=== PATIENT | male | born 1960 | race Caucasian/White ===

== ENCOUNTER → 2023-02-02 07:59 | Outpatient (REF) | payer OTHER, SELFPAY | LOC: DHCBC/DCA 07:59 | PROVIDERS: ATTENDING PHYSICIAN Internal Medicine Cardiovascular Disease; FAMILY PHYSICIAN Student in an Organized Health Care Education/Training Program | DX: I25.10 Atherosclerotic heart disease of native coronary artery without angina pectoris (principal); Z95.1 Presence of aortocoronary bypass graft; I73.9 Peripheral vascular disease, unspecified; I71.21 Aneurysm of the ascending aorta, without rupture; I50.31 Acute diastolic (congestive) heart failure; Z98.890 Other specified postprocedural states; Z98.61 Coronary angioplasty status | CPT/HCPCS: 78452; 93017; A9500; J2785 ==

== ENCOUNTER 2023-10-23 21:43 | Observation (INO) | payer OTHER, SELFPAY ==
[2023-10-23 14:31] VITALS: BMI 28.2
[2023-10-23 14:35] VITALS: BP 132/82
[2023-10-23 16:02] LABS: Urine Albumin Negative (Neg - Trace); Urine Bilirubin Negative (Negative); Urine Character Clear (Clear); Urine Color Yellow; Urine Glucose Negative (Negative); Urine Ketone Negative (Negative); Urine Leukocyte Negative (Negative); Urine Nitrite Negative (Negative); Urine Occult Blood Negative (Negative); Urine Specific Gravity 1.015 (<1.030); Urine Urobilinogen Negative (Neg - 1+)
[2023-10-23 16:05] LABS: % Basophils 0.5 % (0-2); % Eosinophils 4.9 % (0-6); % Immature Granulocytes 0.3 % (0-0.5); % Lymphocytes 17.6 % (20.5-51.1); % Neutrophils 67.7 % (42.2-75.2); Absolute Eosinophils 0.2 10^3/uL (0-0.7); Absolute Lymphocytes 0.7 10^3/uL (1.2-3.4); Absolute Monocytes 0.4 10^3/uL (0.1-0.6); Absolute Neutrophils 2.6 10^3/uL (1.4-6.5); Hemoglobin 14.4 g/dL (13.0-18.0); Mean Corp Hgb Conc. 34.3 g/dL (33.0-37.0); Mean Corpuscular Volume 101.9 fL (80.0-94.0); Mean Platelet Volume 10.1 fL (7.4-10.4); Nucleated Red Blood Cells % 0 % (-); Platelet Count 124 10^3/uL (130-400); Red Blood Cell Count 4.12 10^6/uL (4.70-6.10); Red Cell Dist. Width 14.9 % (11.5-14.5); White Blood Cell Count 3.9 10^3/uL (4.8-10.8)
[2023-10-23 16:16] LABS: ALT (SGPT) 72 U/L (0-50); AST (SGOT) 71 U/L (17-59); Albumin 3.8 g/dl (3.5-5.0); Alkaline Phosphatase 78 U/L (38-126); Blood Urea Nitrogen 26 mg/dl (9-20); Calcium 9.5 mg/dl (8.4-10.2); Carbon Dioxide 27 mmol/L (22-30); Chloride 104 mmol/L (98-107); Glucose 119 mg/dl (70-99); INR 1.09; Lipase 88 U/L (23-300); PT 13.9 Sec (11.4-14.6); Potassium 3.6 mmol/L (3.5-5.1); Sodium 133 mmol/L (135-145); Total Bilirubin 0.9 mg/dl (0.2-1.3); Total Protein 6.2 g/dl (6.3-8.2); eGFR > 60.00
[2023-10-23 16:17] LABS: APTT 26.9 Sec (23.4-35.0)
[2023-10-23 16:32] LABS: Troponin I 0.047 ng/ml
--- NOTE | 2023-10-23 17:04 | ED.GENMED ---
History of Present Illness
General
Chief Complaint: Back Pain
Source: patient
Exam Limitations: none
Time Seen by Provider: 10/23/23 14:52
Nursing documentation reviewed up to this point in time: agreed with
Travel History
Have you had any contact with someone who has COVID-19?: No
Do you have any symptoms of coronavirus? Fever > 100 degrees, chills, cough, shortness of breath, sore throat, loss of taste or smell, muscle aches, or headache?: No
History of Present Illness
History of Present Illness:
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
evaluation of right mid back pain. Patient reports onset of symptoms about 10 days ago and have been constant since that time. He denies any trauma or injury. He says that the pain is located in the right mid back just inferior to his scapula on
the right. It seems to be somewhat worse when he is sitting forward he says it feels better when he lays flat. There is no positional component�he has full range of motion of the back and says that it does not trigger increasing discomfort in fact
he did a full back weightlifting workout without increasing pain (in fact he says pain was a bit better after he did his back workout). He denies any associated shortness of breath. He denies any pain in his chest. He denies any abdominal pain.
No nausea, vomiting. He denies any urinary symptoms. He denies similar symptoms in the past. He discussed with his primary doctor who referred to the ER for evaluation.
Past History
Past History
ED Past Medical History: CAD, HTN, Hypercholesterolemia, Psychiatric (anxiety) and Other (upper thoracic aneursym, freq urination-left kidney mass, arthritis)
ED Past Surgical History: Orthopedic (cellulitis of left leg/buttock, right shoulder arthroscopy, left upper thigh debridement) and Other (left nephroctomy 2009. Vascular surgery as described in the history)
Social History
Tobacco: Non-smoker
Alcohol: None
Drug: None
Personal:
Living: with family
Family History
Family History: CAD
Review of Systems
Review of Systems
All Other Systems: ROS reviewed and negative except as documented in HPI and ROS
Constitutional: Denies fever
Respiratory: Denies cough or trouble breathing
Cardiac: Denies chest pain or palpitations
ABD/GI: Denies abdominal pain, nausea or vomiting
: Reports flank pain; Denies dysuria or frequency
Musculoskeletal: Reports back pain; Denies joint pain or neck pain
Neurological: Denies headache, weakness or numbness
Phy Exam
Physical Exam
Physical Exam:
General: Awake, alert, oriented x3; no acute distress
Head: Normocephalic, atraumatic
Eyes: Conjunctiva normal, sclera anicteric
Throat: Airway intact, handling secretions
Neck: Trachea midline, supple without meningismus
Lungs: Clear to auscultation bilaterally, no wheezing, rales, rhonchi
Heart: Regular rate and rhythm, no murmurs, gallops, or rubs
Abd: Soft, non distended, nontender
Back: Patient has no reproducible tenderness in the thoracic or lumbar spine or inferior to the scapula in the region of concern, no rash or skin changes noted
Neuro: Cranial nerves grossly intact, speech fluid
Skin: no rash, no ecchymosis in area of concern
Extremities: Patient has full range of motion in all extremities without discomfort including full rotation of the right shoulder, flexion, extension without triggering discomfort; he has no edema in his extremities; he has scars on the left lower
extremity from prior surgery but distal extremities are warm and well-perfused with good pulses
Scores
Heart Failure Risk
Heart Failure Risk Score: Not Applicable
Heart Score for Chest Pain Patients
STEMI patient?: Not applicable
Withdrawal Assessment of Alcohol
Withdrawal Assessment Completed?: Not applicable
Course
Orders/Labs/Results
Orders:
Orders
10/23/23 15:29
CT Chest Pe Study Urgent
Comment:
Reason For Exam: right mid back pain
10/23/23 15:30
Electrocardiogram (*1) Urgent
Reason for Study: Other
Other Reason for Exam: scapular pain
EKG- Treatment ONCE
10/23/23 15:51
Complete Blood Count/With Diff Urgent
Comprehensive Metabolic Panel Urgent
Lipase Urgent
PTT Urgent
Prothrombin Time Urgent
Troponin I Urgent
Urinalysis Reflex To Culture Urgent
Date Specimen was Collected: 10/23/23
Time Specimen was Collected: 15:49
10/23/23 16:18
US Abdomen Complete/Upper Urgent
Comment:
Reason For Exam: right scapular/flank pain, abnormal LFTs
10/23/23 19:12
CPK [Creatine Phosphokinase] Urgent
Troponin I Urgent
10/23/23 20:09
CARDIOLOGY CONSULT Urgent
Consulting Provider: Benjamin Goins
Was physician already notified: Yes
10/23/23 20:14
Ketorolac [Toradol] 15 mg IV NOW STA
Lorazepam [Ativan] 1 mg IV NOW STA
Abnormal Lab Results
10/23/23 10/23/23
15:51 19:12
WBC 3.9 L 10^3/uL
(4.8-10.8)
RBC 4.12 L 10^6/uL
(4.70-6.10)
MCV 101.9 H fL
(80.0-94.0)
MCH 35.0 H pg
(27.0-31.0)
RDW 14.9 H %
(11.5-14.5)
Plt Count 124 L 10^3/uL
(130-400)
Absolute Lymphs (auto) 0.7 L 10^3/uL
(1.2-3.4)
Lymphocytes % 17.6 L %
(20.5-51.1)
Sodium 133 L mmol/L
(135-145)
BUN 26 H mg/dl
(9-20)
Glucose 119 H mg/dl
(70-99)
AST 71 H U/L
(17-59)
ALT 72 H U/L
(0-50)
Creatine Kinase 563 H U/L
(55-170)
Troponin I 0.047 H* ng/ml 0.049 H* ng/ml
Total Protein 6.2 L g/dl
(6.3-8.2)
10/23/23 15:51
10/23/23 15:51
Vital Signs
Initial and Last Documented VS:
Initial Vital Signs
Temp Pulse Resp BP Pulse Ox
36.8 C 70 16 132/82 98
10/23/23 14:35 10/23/23 14:35 10/23/23 14:35 10/23/23 14:35 10/23/23 14:35
Last Documented Vital Signs
Temp Pulse Resp BP Pulse Ox
36.8 C 65 16 169/89 95
10/23/23 14:35 10/23/23 19:45 10/23/23 19:45 10/23/23 17:41 10/23/23 19:45
MDM/Problems Addressed
Differential Diagnosis Includes:
Pneumonia, pneumothorax, pulmonary embolism, ACS, pericarditis, nephrolithiasis, cholecystitis, cholelithiasis, choledocholithiasis, retroperitoneal hemorrhage, musculoskeletal pain
MDM/Problems Addressed:
63-year-old male presents for atraumatic right mid back/scapular pain for the past week and a half. Vital signs normal. Exam as above. Symptoms not clearly muscular; he has a known history of aneurysm in the thorax. Will plan to place an IV
check labs including a CBC and a CMP. Will check an EKG and a troponin. Check lipase. Will check urinalysis. Will send for a CT angio of the chest. Will monitor closely reassess after the above.
Labs reviewed: CBC shows marginal leukopenia to 3.9 and marginal thrombocytopenia to 124. CMP shows mildly elevated AST and ALT but normal T. bili, lipase is normal; given his symptoms and upper abdominal ultrasound. His urinalysis shows no blood
or signs of infection. His troponin was marginally elevated at 0.047. Awaiting results of CT.
CTA negative for pulmonary embolism, aortic dissection or other acute pathology to account for symptoms. His upper abdominal ultrasound similarly was nondiagnostic. His repeat troponin was essentially flat at 0.049. At this point no clear cause
for his right scapular pain; certainly it sounds very atypical for cardiac pain as there is no clear exertional component and if anything it sounds like it may get better with exertion however no other clear cause for his pain and that is not
clearly muscular and with troponin elevation and cardiac risk factors will plan for admission for cardiac evaluation. Case discussed with cardiology (patient previously seen by Jaime Gale); will consult on patient, plan for admission to the
hospitalist. Discussed with hospitalist for admission.
Chronic conditions affecting care:
Aneurysm
Hypertension, hyperlipidemia
Acute Exacerbation and/or Progression of Chronic Illness:
Acutely hypertensive
Acute Exacerbation and/or Progression of Chronic Illness: HTN
*Radiology
Radiology exam reviewed: radiology read reviewed
*Pulse Oximetry
Patient hypoxic: no
*EKG
Interpreted by ED Provider?: Yes
Comparison EKG: no changes
Heart Rate: 67
Rate: normal
Rhythm: sinus
[place]: normal axis
Interval: first degree heart block
QRS Pattern: right bundle branch block
Ischemia: T-wave inversion (Lateral T wave abnormalities)
*Critical Care Note
Total Time (30-74mins, 75-104mins- exclusive of procedures): Not Applicable
Data Reviewed
Review of Other/Old Records Reveals: Labs, Records and Discharge Summary
Source: patient and records
Patient Management
Discussion with other providers: Hospitalist (Discussed with hospitalist) and Surveyor Chain Helper (Discussed with cardiology)
Escalation/DeEscalation of care consider admission/obs:
Admission indicated
ED Attending Note
-
Portions of this chart may have been created with voice recognition software.� Occasional wrong word or��sound alike� substitutions may have occurred due to the inherent limitations of voice recognition software.
Discharge Plan
Departure
Patient Disposition: Admit
Date of Disposition: 10/23/23
Time of Disposition: 20:14
Admit to doctor: Royal
Presentation/result/management discussed w/ accepting MD/DO: Hospitalist
Discharge Problem:
Pain of right scapula, Elevated troponin
Prescriptions:
No Action
aspirin 81 MG tablet,delayed release (DR/EC)
81 mg PO DAILY
levothyroxine 100 mcg Tablet
100 mcg PO DAILY
ibuprofen [Advil] 200 mg Tablet
800 mg PO DAILYPRN PRN (Reason: mild pain)
vitamin B complex Tablet
1 tab PO DAILY
zinc 50 mg Tablet
50 mg PO DAILY
lisinopril 5 mg Tablet
5 mg PO DAILY
Patient Comments:
10/23/2023, per pt., he sometimes forgets to take this med.
imatinib [Gleevec] 400 mg Tablet
400 mg PO DAILY
rosuvastatin 20 mg Tablet
20 mg PO Q48H@0800
cholecalciferol (vitamin D3) 25 mcg (1,000 unit) Tablet
25 mcg PO DAILY
omega 1-qfm-jvs-fish oil [Fish Oil] 1,200 (144-216) mg Capsule
1 cap PO DAILY
Patient Comments:
10/23/2023, 1280 mg.
magnesium
1 tab PO DAILY
hawthorn melendez
300 mg PO DAILY
Referrals:
NONE,* [Family Provider] -
Interventions
Interventions:
*Risk Screen - Suicide Last Done: 10/23/23 16:56
*General Assessment Last Done: 10/23/23 16:56
*Neglect/Abuse Screening Last Done: 10/23/23 16:56
ED- Fall Risk Assessment Last Done: 10/23/23 16:56
*ED COVID-19 Vaccine History Last Done: 10/23/23 14:39
ED-Musculoskeletal Assessment Last Done: 10/23/23 16:56
[2023-10-23 17:41] VITALS: BP 169/89
[2023-10-23 19:36] LABS: Creatine Phosphokinase 563 U/L (55-170)
[2023-10-23 19:54] LABS: Troponin I 0.049 ng/ml
[2023-10-23] MEDS: TORADOL 15 MG IV (20:22)
[2023-10-23] MEDS: ATIVAN 1 MG IV (20:22)
[2023-10-23 20:27] VITALS: BP 158/76
--- NOTE | 2023-10-23 20:35 | HPS.HSE ---
Addendum entered and electronically signed by Hunter Paige DO 10/23/23 22:09:
Patient seen and examined independently. Agree with findings and plan as set forth by DEMETRIA Franco.
Patient is a 63y M with PMH significant for ASCVD, AAA and hypertension who presents to ED complaining of R scapular pain x 10 days. 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 He denies any recent injury, trauma,
etc. Patient has noted R scapular pain upon waking for the past 10 days. Pain typically improves gradually throughout the AM. He denies any associated symptoms such as dyspnea, diaphoresis, nausea, etc.
Patient has continued to work-out and states that he has no pain while working out.
He has prior h/o coronary disease s/p CABG.
Ass:
Right Scapular Pain
Abnormal Troponin - Unknown Type
ASCVD
Benign Hypertension
AAA
Hypothyroidism
CML
Plan:
Observe overnight for further evaluation and treatment.
Pain-free at present.
Follow for any recurrence of pain.
EKG with lateral T wave inversions - but similar to prior tracings from several years ago.
Cardiology evaluation for additional recommendations / work-up.
Continue current CV med regimen for now.
Begin IV heparin, etc should pain have increasing troponin, further pain, etc.
Original Note:
Family Physician
-
Family Physician: * NONE
Chief Complaint
-
right mid scapula pain
History of Present Illness
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
evaluation of right middle scapula pain for past ten days. patient wakes up with it in the morning and subsides by the end of day.He denies any trauma or injury.pain is better, when laying flat. stated mild sob with exertion. patient started taking
hawthorn melendez for sob, which had helped him in the past.� He denies any pain in his chest.� He denies any abdominal pain.� No nausea, vomiting.� He denies any dysuria or hematuria.
noted elevated trop in ER. admitting for further management.
Medical History
Past Medical History
Past Medical History: Reports Other
Additional Past Medical History:
Thoracic aortic aneurysm without rupture
Hyperlipidemia
Peripheral vascular disease
Thoracic ascending aortic aneurysm
Coronary artery disease
Tachycardia hypertension
Popliteal artery aneurysm
Past Surgical History: Reports Other
Additional Past Surgical History:
Right shoulder replacement
Partial nephrectomy of kidney
Mid SFA
Robotic cardiac bypass
Neck fusion
Social History
Tobacco: Non-smoker
Alcohol: None
Drug: None
Personal:
Living: With Family
Employment: Employed
Family History
Family History: Not pertinent
Allergies / Home Medications
Allergies reflects when Allergies were last updated in [facility].
Home Medications with original date entered in [facility]
Allergy/Medication List:
Allergies
Allergy/AdvReac Type Severity Reaction Status Date / Time
zolpidem [From Ambien] Allergy Unknown Verified 10/23/23 14:42
Home Medications
aspirin 81 mg tablet,delayed release 81 mg PO DAILY Blood clot prevention/tx 04/27/20
cholecalciferol (vitamin D3) 25 mcg (1,000 unit) tablet 25 mcg PO DAILY 10/23/23
hawthorn melendez 300 mg PO DAILY 10/23/23
ibuprofen 200 mg tablet (Advil) 800 mg PO DAILYPRN PRN mild pain 10/23/23
imatinib 400 mg tablet (Gleevec) 400 mg PO DAILY 10/23/23
levothyroxine 100 mcg tablet 100 mcg PO DAILY 10/23/23
lisinopril 5 mg tablet 5 mg PO DAILY 10/23/23
magnesium 1 tab PO DAILY 10/23/23
omega 6-sii-igw-fish oil 1,200 mg (144 mg-216 mg) capsule (Fish Oil) 1 cap PO DAILY 10/23/23
rosuvastatin 20 mg tablet 20 mg PO Q48H@0800 10/23/23
vitamin B complex 1 tab PO DAILY 10/23/23
zinc 50 mg tablet 50 mg PO DAILY 10/23/23
Review of Systems
-
Constitutional: Reports No Symptoms
EENT: Reports No Symptoms
Respiratory: Reports Trouble Breathing
Cardiac: Reports No Symptoms
Abdomen/GI: Reports No Symptoms
: Reports No Symptoms
Musculoskeletal: Reports Other (Right mid scapular pain)
Skin: Reports No Symptoms
Neurological: Reports No Symptoms
Endocrine: Reports No Symptoms
Hematologic/Lymphatic: Reports No Symptoms
Psych: Reports No Symptoms
Physical Exam
Vital Signs
Vital Signs
Temp Pulse Resp BP Pulse Ox
98.2 F 65 16 169/89 95
10/23/23 14:35 10/23/23 19:45 10/23/23 19:45 10/23/23 17:41 10/23/23 19:45
Physical Exam
General: Well Developed, Well Nourished and No Apparent Distress
HEENT: NormoCephalic, Moist mucous membranes and Atraumatic
Respiratory: Clear
Cardiac: S1/S2 and Regular Rhythm; No Murmur or Rub
GI: Soft, Non Tender, Non Distended and Normal Bowel Sounds; No Organomegaly
Rectal: Deferred by Provider
Musculoskeletal: No Clubbing, No Cyanosis and No Edema
Skin: No Rash
Neuro: AO x 3 and Nonfocal/grossly intact
Psych: Calm
Laboratory Results
-
10/23/23 15:51
10/23/23 15:51
Laboratory Results
PT 13.9 Sec (11.4-14.6) 10/23/23 15:51
INR 1.09 10/23/23 15:51
APTT 26.9 Sec (23.4-35.0) 10/23/23 15:51
Total Bilirubin 0.9 mg/dl (0.2-1.3) 10/23/23 15:51
AST 71 U/L (17-59) H 10/23/23 15:51
ALT 72 U/L (0-50) H 10/23/23 15:51
Alkaline Phosphatase 78 U/L (38-126) 10/23/23 15:51
Troponin I 0.049 ng/ml H* 10/23/23 19:12
Lipase 88 U/L (23-300) 10/23/23 15:51
Data Reviewed
-
Diagnostic Radiology: Report Reviewed by me
Lab Data: Labs Reviewed by me
Impression/Plan
-
#right scapular pain r/O NSTEMI
-trop 0.049,CK 563
-EKG with Sinus rhythm with 1st degree AV block, incomplete right bundle branch block
-CTA negative
-Trend Trop
-cardiology consulted
#Chronic LFT elevation
-ast 71,alt 72
-ctm
-US abdomen with Normal appearance of the gallbladder with no evidence for biliary ductal dilation.Liver size is in the upper range of normal.Spleen is slightly enlarged.Pancreatic tail is unable to be adequately visualized.Bilateral renal cysts.
# History of PAD
-s/p left SFA to distal PT bypass with transposed saphenous vein for popliteal artery aneurysm/thrombosis 04/2016
- s/p urgent catheter directed thrombolysis, angioplasty and stenting of LLE bypass 01/16/20
-Aspirin continued
#hxt of CML
-Gleevec continued
#hypothyroidism
-levothyroxine continued
#essential htn
-lisinopril continued
#HLD
-statin continued
#DVT prophylaxis
-scd
#CODE status
-full code
[2023-10-23 21:00] VITALS: BP 132/77
[2023-10-23 23:11] VITALS: BP 157/77
[2023-10-23 23:14] VITALS: BMI 27.8
[2023-10-24 00:16] VITALS: BP 118/74
[2023-10-24] MEDS: TUMS 2 TABLET PO (00:18)
[2023-10-24] MEDS: NORCO 5/325 1 TABLET PO (00:18)
--- NOTE | 2023-10-24 00:49 | PTCARENOTE ---
received patient from the ED at approx 2300. AAOx3. patient c/o R upper back pain, stabbing. patient states pain only with exertion; walking, sitting up. states pain subsides when laying in bed. denies any chest pain/sob. HR SR with a first degree
AVB and BBB 60s. bp stable. 96% on RA. oriented patient to room. NPO at midnight. answered all questions.
patient requesting medication for r upper back pain and indigestion. patient states indigestion from his dinner; not abnormal per patient. patient denies any cp. updated Rad[facility] [employer]. Renwick 1 tab and tums ordered and given, see sep.
patient had recent b/l bicep surgery-blood pressures taken on forearms/wrist.
[2023-10-24 00:55] LABS: Troponin I 0.062 ng/ml
[2023-10-24 05:53] VITALS: BP 145/85
[2023-10-24 06:00] VITALS: BMI 27.7
[2023-10-24] MEDS: SYNTHROID 100 MCG PO (06:09)
--- NOTE | 2023-10-24 06:13 | PTCARENOTE ---
patient states sleeping overnight. denies any pain. ambulated to the BR with no issue. vitals stable.
[2023-10-24 06:35] LABS: Hematocrit 43.5 % (39.0-52.0); Hemoglobin 15.1 g/dL (13.0-18.0); Mean Corp Hgb Conc. 34.7 g/dL (33.0-37.0); Mean Corpuscular Hgb 35.1 pg (27.0-31.0); Mean Corpuscular Volume 101.2 fL (80.0-94.0); Mean Platelet Volume 10.5 fL (7.4-10.4); Platelet Count 111 10^3/uL (130-400); Red Cell Dist. Width 14.9 % (11.5-14.5); White Blood Cell Count 3.4 10^3/uL (4.8-10.8)
[2023-10-24 07:10] VITALS: BP 144/77
[2023-10-24 07:11] LABS: ALT (SGPT) 68 U/L (0-50); AST (SGOT) 62 U/L (17-59); Albumin 3.5 g/dl (3.5-5.0); Alkaline Phosphatase 85 U/L (38-126); Blood Urea Nitrogen 27 mg/dl (9-20); Calcium 9.5 mg/dl (8.4-10.2); Carbon Dioxide 24 mmol/L (22-30); Chloride 109 mmol/L (98-107); Estimated Creatinine Clearance 95 ml/min; Glucose 119 mg/dl (70-99); HDL Cholesterol 25 mg/dl; LDL Cholesterol, Calculated 50 mg/dl; Potassium 3.7 mmol/L (3.5-5.1); Sodium 136 mmol/L (135-145); Total Bilirubin 0.6 mg/dl (0.2-1.3); Total CK 373 U/L (55-170); Total Cholesterol 97 mg/dl (50-199); Total Protein 5.8 g/dl (6.3-8.2); Triglyceride 110 mg/dl (10-149); Troponin I 0.062 ng/ml; Very Low Density Lipoprotein 22 mg/dl (0-30); eGFR > 60.00
[2023-10-24 07:48] LABS: CKMB 6.3 ng/ml (0.0-2.4)
--- NOTE | 2023-10-24 08:20 | CON.CAR ---
Addendum entered and electronically signed by Jaime Gale MD 10/24/23 10:52:
63-year-old man with complex medical history including CAD, COURTNEY to LAD robotic CABG with RCA PCI, hypertrophic cardiomyopathy, aneurysm of ascending aorta, HFpEF, limb threatening left lower extremity PAD, CML on Gleevec admitted now with right
scapular pain and detectable troponin, peak 0.062, EKG sinus bradycardia RSR prime diffuse anterolateral T wave inversions which are longstanding. Long history of noncompliance
PMH: CAD, aneurysm of ascending aorta RCA PCI with hybrid CABG, hypertrophic cardiomyopathy, hypertension, hyperlipidemia refusing statin therapy, CML on Gleevec, history of anabolic steroid use
PSH: Robotic COURTNEY to LAD, cervical laminectomy, thrombosed left fem bypass
Family history father with abdominal aortic aneurysm, mother with CABG
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
Allergies: None
Review of systems negative except as above
144/77, pulse 62, respirate 16
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
ECG sinus rhythm with rare PACs versus sinus arrhythmia, incomplete right bundle branch block anterolateral T wave inversions which are chronic
CT chest: LVH no dissection, pneumo, pulmonary embolus
Peak troponin is 0.062
Plan:
He presents with pain that sounds very musculoskeletal.
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 His pain is worse with standing only and better lying down. When he walks, it becomes more intense but I think this relates to his standing rather than
exertion as he can exercise at the gym without difficulty and feels better throughout the day. It is worse when he first gets up in the morning before moving. He also saw a cough chiropractor had local therapy applied medial to his right scapula
and thinks it may have helped a bit. I had him stand without moving and his pain worsened. I had him lie down and his pain got better.
His detectable troponin is of concern but it is flat and I think this reflects his LVH more than anything. I would be tempted to repeat a troponin in several days and suspect that will still be low-grade elevated.
Despite my my assessment that this is musculoskeletal, given the complexity of his situation I lean towards catheterization which I suspect would show a patent COURTNEY and patent RCA stents without obstructive CAD. His LVEDP would likely be elevated
related to his LVH. However he is understandably reluctant and we agreed that repeating a pharmacologic sestamibi study is a good option.
We will check a proBNP prior to discharge.
He will continue statin therapy.
He has previously refused beta-blockade and has a resting bradycardia.
If he requires nonsteroidals I recommended naproxen over ibuprofen. Have him take famotidine while on nonsteroidals.
Recommended cardiac medications:
Aspirin 81 mg a day
Rosuvastatin 20 mg a day
Naproxen 250 mg twice daily as needed
Famotidine 20 or 40 mg daily with naproxen
Lisinopril 5 mg daily
Would repeat troponin in 3 days with attention to me, many patients have minimal chronic elevation of troponin which does have prognostic significance in the absence of ACS
Would recommend he see orthopedics, chiropractic, etc. for his back
Original Note:
Consultation
Consultation Request
Date/Time Consultation Performed: 10/24/23
Requesting Provider: Dr. Paige
Performing Provider: Heather Wood PA-C for Dr. SHON Gale
Reason for Consultation: back pain
Medical History
-
Chief Complaint: back pain
History of Present Illness:
Patient is a 63-year-old male with PMH of CAD status post hybrid approach RCA PCI and robotic COURTNEY to LAD at 2020 at [facility], LVOT obstruction with associated murmur, peripheral vascular disease with history of left femoral-popliteal
bypass with subsequent occlusion of bypass graft, CML, thoracic aortic aneurysm, left partial nephrectomy for renal cell carcinoma who presents to [facility] for evaluation of back pain. He reports this has bothered him over the last week.
He describes it as an upper right sided stabbing pain under his scapula. He states it feels better with lying down and with movement. He states it is not reproducible with palpation. It is worst when he first wakes up in the morning. He denies
associated shortness of breath, palpitations, lightheadedness or dizziness, nausea or vomiting, radiation of pain to arms, chest, jaw/neck. He reports he did not present with chest pain in the setting of his prior PCI/coronary bypass. He reports
the discomfort has not limited his ability to work out. He reports no present pain, however states with getting up to go to the bathroom he will develop recurrence of the discomfort. Trops stable at 0.06. Cardiology consulted for evaluation
PMH:
CAD s/p RCA PCI and robotic COURTNEY to LAD 2019 [facility]
LVOT obstruction with associated murmur
CML, on gleevec
Peripheral vascular disease with history of left femoropopliteal bypass 2016 with occluded bypass graft 03/2020
HTN with intermittent orthostasis
dyslipidemia
Hypothyroidism
mild dilation of infrarenal aorta 2.[address] 2010
known thoracic aortic aneurysm 4.6 cm aortic root on CT 2011
h/o L partial nephrectomy for renal cell CA
Cervical disc disease s/p laminectomy
History of anabolic steroid use
Past Medical History
Past Medical History: Other (in HPI)
Social History
Tobacco: Non-Smoker
Personal:
Living: With Family
Employment: Employed
Family History
Family History: CAD
Allergies / Home Medications
Allergy/AdvReac Type Severity Reaction Status Date / Time
zolpidem [From Ambien] Allergy Gave pt Verified 10/23/23 23:10
nightmares
Medication Instructions Recorded Confirmed Type
aspirin 81 mg tablet,delayed 81 mg PO DAILY Blood clot 04/27/20 10/23/23 History
release prevention/tx
cholecalciferol (vitamin D3) 25 25 mcg PO DAILY 10/23/23 10/23/23 History
mcg (1,000 unit) tablet
hawthorn melendez 300 mg PO DAILY 10/23/23 10/23/23 History
ibuprofen 200 mg tablet (Advil) 800 mg PO DAILYPRN PRN mild pain 10/23/23 10/23/23 History
imatinib 400 mg tablet (Gleevec) 400 mg PO DAILY 10/23/23 10/23/23 History
levothyroxine 100 mcg tablet 100 mcg PO DAILY 10/23/23 10/23/23 History
lisinopril 5 mg tablet 5 mg PO DAILY 10/23/23 10/23/23 History
magnesium 1 tab PO DAILY 10/23/23 10/23/23 History
omega 1-rbc-thn-fish oil 1,200 mg 1 cap PO DAILY 10/23/23 10/23/23 History
(144 mg-216 mg) capsule (Fish Oil)
rosuvastatin 20 mg tablet 20 mg PO Q48H@0800 10/23/23 10/23/23 History
vitamin B complex 1 tab PO DAILY 10/23/23 10/23/23 History
zinc 50 mg tablet 50 mg PO DAILY 10/23/23 10/23/23 History
Review of Systems
-
History Source: Patient
All other systems: Negative unless noted
Physical Exam
Vital Signs
Temp Pulse Resp BP Pulse Ox
97.5 F 59 16 145/85 96
10/24/23 07:08 10/24/23 07:08 10/24/23 07:08 10/24/23 05:53 10/24/23 07:08
Lab Results
10/24/23 05:53
10/24/23 05:53
Troponin I 0.062 ng/ml H* 10/24/23 05:53
Physical Exam
General: No Apparent Distress and Comfortable
HEENT: Normocephalic, Anicteric and Moist Mucous Membranes
Respiratory: Clear and Non Labored Respirations
Cardiac: S1/S2, Regular Rhythm and Murmur
GI: Soft, Non Tender, Non Distended and Normal Bowel Sounds
Musculoskeletal: No Clubbing, No Cyanosis and No Edema
Skin: Warm and Dry
Neuro: AO x 3
Impression / Plan
-
Primary Reconnaissance Crewmember: Dr. SHON Gale
Assessment:
Presentation with R sided back pain
Elevated troponin, 0.06
CAD s/p RCA PCI and robotic COURTNEY to LAD 2019 [facility]
LVOT obstruction with associated murmur
CML, on gleevec
Peripheral vascular disease with history of left femoropopliteal bypass 2017 with occluded bypass graft 03/2020
HTN with intermittent orthostasis
dyslipidemia
Hypothyroidism
mild dilation of infrarenal aorta 2.[address] 2010
known thoracic aortic aneurysm 4.6 cm aortic root on CT 2011
h/o L partial nephrectomy for renal cell CA
Cervical disc disease s/p laminectomy
History of anabolic steroid use
NSVT
B/L renal cysts by abd US
ECHO 05/2021: Moderate to severe asymmetric septal hypertrophy with dynamic LV function, EF 70%, LV mid cavity gradient 65 mmHg, stage II diastolic dysfunction, MAC, trace MR, dilated left atrium, aortic sclerosis, trace AR, dilated aortic root and
ascending aorta, 4.6 cm.
Lexiscan nuclear stress test 02/02/2023: Normal sestamibi perfusion imaging, EF 49%, no obvious ischemia
Plan:
-Patient presents for evaluation of right-sided back pain over the last week
-chest CT without PE or dissection
-Troponin elevated but flat at 0.06
-EKG abnormal but stable compared to prior, with anterolateral T wave inversions and LVH
-CK/CK-MB noted to be elevated
-Discomfort appears atypical for cardiac etiology, however patient also with complex cardiac history as above
-Continue aspirin, lisinopril
-He had 12 beat run of NSVT on review of telemetry overnight. He has previously refused beta-wendy. Sinus bradycardia at baseline. Replete K. Check magnesium
-LDL 50. Continue Crestor every 48 hours
-Check echo, last from 05/2021 with results as above. he is noted to have LVOT murmur on exam
-Recent stress test from 01/2023 as above
-If significant concern pain related to ischemia, consider for cardiac cath. patient presently NPO.
-LFTs mildly elevated. abd US reviewed - normal appearance of gallbladder, liver size in upper range of normal
Data Reviewed
-
EKG: Tracing Personally Visualized and interpreted
CT Scan: Report Reviewed by me
Ultrasound: Report Reviewed by me
Medical Tests (Nuc Med, Echo etc): Report Reviewed by me
Labs: Labs Reviewed by me
Old Records: Reviewed
[2023-10-24] MEDS: ASPIR LOW (ENTERIC COATED) 81 MG PO (08:30)
[2023-10-24] MEDS: ZESTRIL 5 MG PO (08:30)
[2023-10-24 08:43] LABS: Glycohemoglobin (HgbA1c) 5.1 % (4.0-5.6)
[2023-10-24 09:34] LABS: Magnesium 1.8 mg/dl (1.6-2.3)
[2023-10-24] MEDS: KCL 20 MEQ PO (10:49)
--- NOTE | 2023-10-24 11:08 | CM ---
spoke with pt in room, he is prev indep, lives with his /son in a 2 story home with 4 steps to enter. he denies any dc planning needs or dme's. plan is for dc to home when medically stable.
[2023-10-24 11:53] VITALS: BP 130/80
[2023-10-24 12:20] LABS: NT-proBNP 213 pg/ml
--- NOTE | 2023-10-24 14:21 | W.PN.HOSP.TC ---
Today's Communication/Plan
-
Discharge today
Assessment / Plan
Assessment / Plan
Physical Exam
General: Well Developed, Well Nourished and No Apparent Distress
HEENT: Normocephalic, Moist mucous membranes and Atraumatic
Respiratory: Clear
Cardiac: S1/S2 and Regular Rhythm; No Murmur or Rub
GI: Soft, Non Tender, Non Distended and Normal Bowel Sounds; No Organomegaly
Rectal: Deferred by Provider
Musculoskeletal: No Clubbing, No Cyanosis and No Edema
Skin: No Rash
Neuro: AO x 3 and Nonfocal/grossly intact
Psych: Calm

#Right scapular pain - worse with standing and better with lying down
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
-CTA negative
-cardiology consulted, recommendations appreciated
-Per cardiology, after discussion with patient, repeat a pharmacologic sestamibi study as an outpatient
-ProBNP unremarkable
-As per cardiology, okay to take Naproxen 250 mg twice daily as needed (rather than ibuprofen) but take Famotidine 20 or 40 mg daily with naproxen while on naproxen.
-Orthopedics referral on discharge
#Abnormal Troponin
-Likely from left ventricular hypertrophy as per cardiology
-Recheck troponin in 3 days to make sure still okay (and please send results to Dr. Jaime Gale, [facility] storage management architect)
#Resting Bradycardia
-Patient has previously refused beta-wendy as well
#CAD s/p RCA PCI and robotic COURTNEY to [address]
#Chronic LFT elevation
-ast 71,alt 72
-ctm
-US abdomen with Normal appearance of the gallbladder with no evidence for biliary ductal dilation.Liver size is in the upper range of normal.Spleen is slightly enlarged.Pancreatic tail is unable to be adequately visualized.Bilateral renal cysts.
# History of PAD with history of left femoropopliteal bypass 2017 with occluded bypass graft 03/2020
-Aspirin continued
#Known thoracic aortic aneurysm 4.6 cm aortic root on CT 2011
#Mild dilation of infrarenal aorta 2.[address] 2010
#Non-sustained ventricular tachycardia
-Recheck BMP and Magnesium as an outpatient in 3 days
#History of of CML
-Gleevec continued
#History of left partial nephrectomy for renal cell cancer
#hypothyroidism
-levothyroxine continued
#essential hypertension
-Continue Lisinopril 5 mg daily
#B/L renal cysts by abdominal ultrasound
#Spleen slightly enlarged by abdominal ultrasound
#HLD
-statin continued
#DVT prophylaxis
-scd
#CODE status
-full code
More than 30 minutes spent in discharge including
Final examination of the patient
Summarizing hospital stay
Instructions for continuing care to all relevant caregivers
Preparation of discharge records, prescriptions, and referral forms
Total time spent (in minutes): 41
Anticipated Discharge: Today
Subjective/Interval History
-
Date of Service: October 24, 2023
Patient was seen and examined. He reported back pain but otherwise denied any new symptoms or complaints and would like to be discharged today.
Objective Data
-
Labs:
Laboratory Results
10/24/23
05:53
WBC 3.4 L
Hgb 15.1
Hct 43.5
Plt Count 111 L
Sodium 136
Potassium 3.7
Chloride 109 H
Carbon Dioxide 24
BUN 27 H
Creatinine 0.9
Glucose 119 H
Calcium 9.5
Total Bilirubin 0.6
AST 62 H
ALT 68 H
Alkaline Phosphatase 85
Vital Signs:
Vital Signs
Temp Pulse Resp BP Pulse Ox
98 F 66 16 130/80 99
10/24/23 11:53 10/24/23 12:30 10/24/23 11:53 10/24/23 11:53 10/24/23 11:53
--- NOTE | 2023-10-24 14:53 | W.DS.TRANS ---
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
-
Discharge Instructions:
Discharge Diagnosis/Procedures #Right scapular pain - worse with standing and
better with lying down
#Abnormal Troponin
#Resting Bradycardia
#CAD s/p RCA PCI and robotic COURTNEY to LAD 2019
[facility]
#Chronic hepatic transaminases elevation
#History of Peripheral Artery Disease with
history of left femoro-popliteal bypass 2016
with occluded bypass graft 03/2020
#Known thoracic aortic aneurysm 4.6 cm aortic
root on CT 2011
#Mild dilation of infrarenal aorta 2.[address]
2010
#Non-sustained ventricular tachycardia
#History of of CML
#History of left partial nephrectomy for renal
cell cancer
#Hypothyroidism
#Essential hypertension
#Bilateral renal cysts by abdominal ultrasound
#Spleen slightly enlarged by abdominal
ultrasound
#Hyperlipidemia
Diet Low Cholesterol,Low Fat,Low Sodium
Activity As tolerated
Blood Work Recheck your CBC, BMP and Magnesium as well as
troponin in the next 3 days (by Monday10/27/23)
with your primary care provider (if you don't
have a primary care provider a referral was made
- please see them latest by 10/27/23)
Instructions:
Stand-Alone Forms:
Changes to Home Medications: Yes
Discharge Medications:
DC Medications w/original date entered in [employer]
aspirin 81 mg tablet,delayed release 81 mg PO DAILY Blood clot prevention/tx 04/27/20
cholecalciferol (vitamin D3) 25 mcg (1,000 unit) tablet 25 mcg PO DAILY Supplement 10/23/23
hawthorn melendez 300 mg PO DAILY Supplement 10/23/23
imatinib 400 mg tablet (Gleevec) 400 mg PO DAILY Cancer 10/23/23
levothyroxine 100 mcg tablet 100 mcg PO DAILY Thyroid 10/23/23
lisinopril 5 mg tablet 5 mg PO DAILY Blood Pressure 10/23/23
magnesium 1 tab PO DAILY Supplement 10/23/23
omega 5-yek-lgt-fish oil 1,200 mg (144 mg-216 mg) capsule (Fish Oil) 1 cap PO DAILY Supplement 10/23/23
vitamin B complex 1 tab PO DAILY Supplement 10/23/23
zinc 50 mg tablet 50 mg PO DAILY Supplement 10/23/23
famotidine 20 mg tablet 20 mg PO DAILY #20 tabs 10/24/23
naproxen 250 mg tablet 250 mg PO BID PRN Pain #20 tabs 10/24/23
rosuvastatin 20 mg tablet 20 mg PO DAILY High Cholesterol #0 tabs 10/24/23
Home Medication Changes
Naproxen and Famotidine are new medications.
Rosuvastatin has been changed to 20 mg daily (instead of Q48H) as per phys asst.
Ibuprofen stopped.
Pending Results: No
Total time spent discharging patient (in min): 41
--- NOTE | 2023-10-27 12:41 | W.DCSUMMARY ---
Discharge Summary
Discharge Data
Date of Admission: 10/23/23
Date of Discharge: 10/24/23
Total time spent discharging patient (in min): 41
-
Pending Results: No
Hospital Course
63 y/o male with a past medical history of coronary artery bypass grafting with additional past medical history, who presented with right scapular pain. Cardiology was consulted given abnormal troponins and electrocardiogram with T-wave inversions.
Patient was started on intravenous Heparin. 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 Due to patient's history and situation, cardiology favored cardiac cath but
patient was reluctant to have the cath, so a stress test would be scheduled outpatient. Cardiology was okay with patient Naproxen for his pain rather than Ibuprofen. A repeat troponin would have to be checked by 10/27/23. Echocardiogram was done --
please see separate echocardiogram report. Patient was stable for discharge.
Discharge Plan
-
Patient Disposition: Home (Routine Discharge)
Discharge Diagnosis/Procedures: #Right scapular pain - worse with standing and better with lying down
#Abnormal Troponin
#Resting Bradycardia
#CAD s/p RCA PCI and robotic COURTNEY to LAD 2019 [facility]
#Chronic hepatic transaminases elevation
#History of Peripheral Artery Disease with history of left femoro-popliteal bypass 2017 with occluded bypass graft 03/2020
#Known thoracic aortic aneurysm 4.6 cm aortic root on CT 2011
#Mild dilation of infrarenal aorta 2.[address] 2010
#Non-sustained ventricular tachycardia
#History of of CML
#History of left partial nephrectomy for renal cell cancer
#Hypothyroidism
#Essential hypertension
#Bilateral renal cysts by abdominal ultrasound
#Spleen slightly enlarged by abdominal ultrasound
#Hyperlipidemia
Condition: Fair
Diet: Low Fat, Low Cholesterol and Low Sodium
Activity: As tolerated
Blood Work: Recheck your CBC, BMP and Magnesium as well as troponin in the next 3 days (by Monday10/27/23) with your primary care provider (if you don't have a primary care provider a referral was made - please see them latest by 10/27/23)
Activity Restrictions/Additional Instructions:
you are scheduled for a lexiscan nuclear stress test on 10/26/23 at 7:40AM at [facility]. Please see attached order and information packet.
Recheck your CBC, BMP and Magnesium as well as troponin labwork in the next 3 days (by Monday10/27/23) with your primary care provider -- THE TROPONIN LAB-WORK RESULTS MUST BE SENT TO DR. JAIME GALE ([facility]) BY YOUR PRIMARY
CARE PROVIDER (if you don't have a primary care provider a referral was made - please see them latest by 10/27/23)
Referrals:
Vasquez Landaverde DO [Community] - in one day (Patient needs to establish with a primary care doctor and have his CBC, BMP, Magnesium and Troponin checked latest by 10/27/23 (the troponin result will need to be sent to Dr. Jaime Gale with
[facility]))
NONE,* [Family Provider] - in one day
Jaime Gale MD [Active] - in four to six weeks
Additional Discharge Medication Instructions: Naproxen and Famotidine are new medications.
Rosuvastatin has been changed to 20 mg daily (instead of Q48H) as per under cutting machine operator.
Ibuprofen stopped.
Prescriptions:
New
naproxen 250 mg tablet
250 mg PO BID PRN (Reason: Pain) Qty: 20 0RF
famotidine 20 mg tablet
20 mg PO DAILY Qty: 20 0RF
Continued
aspirin 81 MG tablet,delayed release (DR/EC)
81 mg PO DAILY
levothyroxine 100 mcg Tablet
100 mcg PO DAILY
vitamin B complex Tablet
1 tab PO DAILY
zinc 50 mg Tablet
50 mg PO DAILY
lisinopril 5 mg Tablet
5 mg PO DAILY
Patient Comments:
10/23/2023, per pt., he sometimes forgets to take this med.
imatinib [Gleevec] 400 mg Tablet
400 mg PO DAILY
cholecalciferol (vitamin D3) 25 mcg (1,000 unit) Tablet
25 mcg PO DAILY
omega 0-ewz-zmq-fish oil [Fish Oil] 1,200 (144-216) mg Capsule
1 cap PO DAILY
Patient Comments:
10/23/2023, 1280 mg.
magnesium
1 tab PO DAILY
hawthorn melendez
300 mg PO DAILY
Changed
rosuvastatin 20 mg Tablet
20 mg PO DAILY Qty: 0 0RF
Discontinued
ibuprofen [Advil] 200 mg Tablet
800 mg PO DAILYPRN PRN (Reason: mild pain)
Discharge Orders:
Discharge Patient (As Directed); Ordered 10/24/23
Ordered By: Shlomo Irwin
Care Plan Goals
Care Plan Goals:
Problem: Readiness for enhanced knowledge related to diagnosis and treatment plan
Goal: Understand your diagnosis and treatment plan needs, including medications if applicable.
Instructions: Know your diagnosis, underlying causes and treatment plan options, including medications if applicable. Consult with your health care team to learn about your diagnosis and treatment plan, including medications if applicable.
Discharge Date and Time
Discharge Date/Time: 10/24/23 15:32
Print Language: LUX[place]
== END 2023-10-24 15:32 | disposition home or self-care (01) ==
LOC: IVU 21:43
PROVIDERS: Registered Nurse; ADMITTING PHYSICIAN Hospitalist; ATTENDING PHYSICIAN Hospitalist; EMERGENCY PHYSICIAN Emergency Medicine; OTHER PHYSICIAN Internal Medicine Cardiovascular Disease
DX: M25.511 Pain in right shoulder (principal); M54.6 Pain in thoracic spine; R79.89 Other specified abnormal findings of blood chemistry; R00.1 Bradycardia, unspecified; I11.0 Hypertensive heart disease with heart failure; E03.9 Hypothyroidism, unspecified; E78.00 Pure hypercholesterolemia, unspecified; I73.9 Peripheral vascular disease, unspecified; I47.20 Ventricular tachycardia, unspecified; N28.1 Cyst of kidney, acquired; I71.21 Aneurysm of the ascending aorta, without rupture; I25.10 Atherosclerotic heart disease of native coronary artery without angina pectoris; Z85.528 Personal history of other malignant neoplasm of kidney; Z95.5 Presence of coronary angioplasty implant and graft; Z96.611 Presence of right artificial shoulder joint; Z82.49 Family history of ischemic heart disease and other diseases of the circulatory system; Z79.82 Long term (current) use of aspirin; Z79.890 Hormone replacement therapy; Z86.79 Personal history of other diseases of the circulatory system; Z95.1 Presence of aortocoronary bypass graft; Z88.8 Allergy status to other drugs, medicaments and biological substances
CPT/HCPCS: 71275; 76700; 80053; 80061; 81003; 82550; 82553; 83036; 83690; 83735; 83880; 84484; 85025; 85027; 85610; 85730; 93005; 93306; 96374; 96375; 99285; G0378; Q9967

== ENCOUNTER → 2023-10-25 13:24 | Outpatient (REF) | payer OTHER, SELFPAY ==
[2023-10-25 14:08] LABS: % Basophils 0.5 % (0-2); % Eosinophils 3.7 % (0-6); % Immature Granulocytes 0.2 % (0-0.5); % Lymphocytes 20.5 % (20.5-51.1); % Monocytes 10.2 % (1.7-9.3); % Neutrophils 64.9 % (42.2-75.2); Absolute Eosinophils 0.2 10^3/uL (0-0.7); Absolute Lymphocytes 0.8 10^3/uL (1.2-3.4); Absolute Monocytes 0.4 10^3/uL (0.1-0.6); Absolute Neutrophils 2.7 10^3/uL (1.4-6.5); Hematocrit 45.8 % (39.0-52.0); Hemoglobin 16.1 g/dL (13.0-18.0); Mean Corp Hgb Conc. 35.2 g/dL (33.0-37.0); Mean Corpuscular Hgb 35.2 pg (27.0-31.0); Mean Platelet Volume 10.3 fL (7.4-10.4); Nucleated Red Blood Cells % 0 % (-); Platelet Count 134 10^3/uL (130-400); Red Blood Cell Count 4.58 10^6/uL (4.70-6.10); Red Cell Dist. Width 14.9 % (11.5-14.5); White Blood Cell Count 4.1 10^3/uL (4.8-10.8)
[2023-10-25 14:37] LABS: Blood Urea Nitrogen 28 mg/dl (9-20); Calcium 10.3 mg/dl (8.4-10.2); Carbon Dioxide 24 mmol/L (22-30); Chloride 102 mmol/L (98-107); Glucose 106 mg/dl (70-99); Magnesium 1.6 mg/dl (1.6-2.3); Potassium 4.4 mmol/L (3.5-5.1); Sodium 137 mmol/L (135-145); eGFR > 60.00
== END ==
LOC: REG 13:24
PROVIDERS: ATTENDING PHYSICIAN Internal Medicine Cardiovascular Disease
DX: I10 Essential (primary) hypertension (principal); I47.29 Other ventricular tachycardia
CPT/HCPCS: 36415; 80048; 83735; 84484; 85025

== ENCOUNTER → 2023-10-26 07:31 | Outpatient (REF) | payer OTHER, SELFPAY | LOC: DHCBC/DCA 07:31 | PROVIDERS: ATTENDING PHYSICIAN Internal Medicine Cardiovascular Disease; FAMILY PHYSICIAN Student in an Organized Health Care Education/Training Program | DX: I25.10 Atherosclerotic heart disease of native coronary artery without angina pectoris (principal); R74.8 Abnormal levels of other serum enzymes; R94.31 Abnormal electrocardiogram [ECG] [EKG]; M54.9 Dorsalgia, unspecified | CPT/HCPCS: 78452; 93017; A9500; J2785 ==

== ENCOUNTER → 2024-05-04 10:18 | Outpatient (REF) | payer OTHER, SELFPAY ==
[2024-05-04 12:11] LABS: PSA, Total - Screen 2.94 ng/ml (0.0-4.0)
== END ==
LOC: REG 10:18
PROVIDERS: ATTENDING PHYSICIAN Specialist
DX: R97.20 Elevated prostate specific antigen [PSA] (principal)
CPT/HCPCS: 36415; G0103

== ENCOUNTER → 2024-09-25 06:55 | Outpatient (REF) | payer OTHER, SELFPAY ==
[2024-09-25 09:28] LABS: ALT (SGPT) 126 U/L (0-50); AST (SGOT) 89 U/L (17-59); Albumin 3.8 g/dl (3.5-5.0); Alkaline Phosphatase 77 U/L (38-126); Blood Urea Nitrogen 27 mg/dl (9-20); Carbon Dioxide 27 mmol/L (22-30); Chloride 100 mmol/L (98-107); Glucose 89 mg/dl (70-99); HDL Cholesterol 25 mg/dl; LDL Cholesterol, Calculated 92 mg/dl; Potassium 4.4 mmol/L (3.5-5.1); Sodium 137 mmol/L (135-145); Total Bilirubin 1.3 mg/dl (0.2-1.3); Total Cholesterol 138 mg/dl (50-199); Total Protein 6.5 g/dl (6.3-8.2); Triglyceride 105 mg/dl (10-149); Very Low Density Lipoprotein 21 mg/dl (0-30); eGFR > 60.00
== END ==
LOC: REG 06:55
PROVIDERS: ATTENDING PHYSICIAN Internal Medicine Cardiovascular Disease
DX: E78.00 Pure hypercholesterolemia, unspecified (principal); I10 Essential (primary) hypertension
CPT/HCPCS: 36415; 80053; 80061

== ENCOUNTER → 2024-11-15 09:04 | Outpatient (REF) | payer OTHER, SELFPAY ==
[2024-11-15 10:53] LABS: Urine Albumin 2+ (Neg - Trace); Urine Bilirubin Negative (Negative); Urine Character Clear (Clear); Urine Color Yellow; Urine Glucose Negative (Negative); Urine Ketone Negative (Negative); Urine Leukocyte Negative (Negative); Urine Nitrite Negative (Negative); Urine Occult Blood Negative (Negative); Urine Urobilinogen Negative (Neg - 1+)
[2024-11-15 12:38] LABS: ALT (SGPT) 83 U/L (0-50); AST (SGOT) 91 U/L (17-59)
[2024-11-15 12:45] LABS: Urine Amorphous Seen; Urine Red Blood Cell 0-2 /HPF (0-2)
== END ==
LOC: REG 09:04
PROVIDERS: ATTENDING PHYSICIAN Internal Medicine Cardiovascular Disease; FAMILY PHYSICIAN Specialist
DX: E78.00 Pure hypercholesterolemia, unspecified (principal); N39.0 Urinary tract infection, site not specified; R31.9 Hematuria, unspecified
CPT/HCPCS: 36415; 81003; 81015; 84450; 84460; 87086

== ENCOUNTER → 2024-11-26 08:31 | Outpatient (REF) | payer OTHER, SELFPAY | LOC: HWRAD 08:31 | PROVIDERS: ATTENDING PHYSICIAN Specialist | DX: R31.9 Hematuria, unspecified (principal) | CPT/HCPCS: 76770 ==

== ENCOUNTER → 2024-12-11 07:58 | Outpatient (REF) | payer OTHER, SELFPAY ==
[2024-12-11 09:09] LABS: Blood Urea Nitrogen 24 mg/dl (9-20); Calcium 9.9 mg/dl (8.4-10.2); Carbon Dioxide 28 mmol/L (22-30); Chloride 109 mmol/L (98-107); Glucose 107 mg/dl (70-99); HDL Cholesterol 32 mg/dl; LDL Cholesterol, Calculated 103 mg/dl; Potassium 5.4 mmol/L (3.5-5.1); Sodium 142 mmol/L (135-145); Total Cholesterol 148 mg/dl (50-199); Triglyceride 66 mg/dl (10-149); Very Low Density Lipoprotein 13 mg/dl (0-30); eGFR > 60.00
== END ==
LOC: REG 07:58
PROVIDERS: ATTENDING PHYSICIAN Specialist; OTHER PHYSICIAN Internal Medicine Cardiovascular Disease
DX: R31.0 Gross hematuria (principal); I73.9 Peripheral vascular disease, unspecified; E78.00 Pure hypercholesterolemia, unspecified
CPT/HCPCS: 36415; 80048; 80061

== ENCOUNTER → 2024-12-30 08:27 | Outpatient (REF) | payer OTHER, SELFPAY | LOC: HWRAD 08:27 | PROVIDERS: ATTENDING PHYSICIAN Pain Medicine Interventional Pain Medicine | DX: M54.50 Low back pain, unspecified (principal) | CPT/HCPCS: 72114 ==

== ENCOUNTER 2025-02-22 03:03 | Observation (INO) | payer OTHER, SELFPAY ==
[2025-02-21 21:30] VITALS: BP 150/85
--- NOTE | 2025-02-21 22:11 | ED.GENMED ---
History of Present Illness
<Samanta Schreiber NP - Last Filed: 02/23/25 23:50>
General
Chief Complaint: Swelling
Source: patient
Exam Limitations: none
Time Seen by Provider: 02/21/25 21:56
Nursing documentation reviewed up to this point in time: agreed with
History of Present Illness
History of Present Illness:
Patient to ED wtih complaint of fatigue, SOB, RLE swelling. Symptoms started yesterday. Reports dizziness while driving. Denies any CP/pressure. Denies n/v/diaphoresis. Brought self to ED for eval.
Past History
<Samanta Schreiber NP - Last Filed: 02/23/25 23:50>
Past History
ED Past Medical History: CAD, Cancer (CML), HTN, Hypercholesterolemia, Hypothyroidism, Psychiatric (anxiety) and Other (upper thoracic aneursym, freq urination-left kidney mass, arthritis)
ED Past Surgical History: Cardiac (THoracic aneurysm repair, Left fem/pop bypass, CABG), Orthopedic (cellulitis of left leg/buttock, right shoulder arthroscopy, left upper thigh debridement) and Other (left nephroctomy 2009. Vascular surgery as
described in the history)
Social History
Tobacco: Non-smoker
Alcohol: None
Drug: None
Personal:
Living: with family
Family History
Family History: CAD
Review of Systems
<Samanta Schreiber NP - Last Filed: 02/23/25 23:50>
Review of Systems
Allergies reviewed?: Yes
All Other Systems: ROS reviewed and negative except as documented in HPI and ROS
Constitutional: Reports fatigue
EENT: Reports no symptoms
Respiratory: Reports no symptoms
ABD/GI: Reports no symptoms
: Reports no symptoms
Musculoskeletal: Reports other (right calf swelling.)
Skin: Reports no symptoms
Neurological: Reports dizzy and weakness
Psychiatric: Reports no symptoms
Phy Exam
<Samanta Schreiber NP - Last Filed: 02/23/25 23:50>
General Physical Exam
General Presentation: well appearing and mild distress
General age: appears stated age
General Skin: warm and dry
General Habitus: normal
Cardiovascular Exam
Cardiovascular Exam: regular rate/rhythm
Pulmonary Exam
Pulmonary Exam: lungs clear and no respiratory distress
Musculoskeletal Exam
Musculoskeletal Exam: full ROM, neuro vasc intact and other (right calf swelling )
Skin Exam
Skin Exam: normal color, warm/dry and no rash
Psychiatric Exam
Psychiatric Exam: normal mood/affect
Scores
<Samanta Schreiber NP - Last Filed: 02/23/25 23:50>
Heart Failure Risk
Heart Failure Risk Score: Yes
History of Stroke or TIA: No
History of intubation for respiratory distress: No
Heart rate on ED arrival >/= 110: No
SaO2 <90% on arrival on room air: No
HR >/=110 during 3min walk test (or too ill to perform test): No
ECG has acute ischemic changes: No
Urea >/=12mmol/L (BUN 33.6mg/dL): No
Serum CO2>/=35mmol/L: No
Troponin I or T elevated to ND Level (0.4mg/dL): No
NT-proBNP >/=5,000ng/L (5,000pg/ml): No
HF Risk Score: 0
Admission Status: LOW RISK 2.8% Consider discharge to home with f/u visit to PCP/[facility]
Course
<Samanta Schreiber NP - Last Filed: 02/23/25 23:50>
Orders/Labs/Results
Orders:
Orders
02/21/25 22:08
Periph Venous Lwr Ext Rt US [US Periph Venous LOWER Ext RT] Urgent
Comment:
Reason For Exam: calf swelling
02/21/25 22:09
Electrocardiogram (*1) Urgent
Reason for Study: Shortness of Breath
EKG- Treatment ONCE
CR Chest - 2 Views Urgent
Comment:
Reason For Exam: SOB
02/21/25 22:25
Complete Blood Count/With Diff Urgent
Comprehensive Metabolic Panel Urgent
Magnesium Urgent
Comment: ADD ON
NT-proBNP Urgent
Comment: ADD ON
Troponin I Urgent
02/21/25 23:52
Add On- LAB Urgent
Tests Added?: BNP
02/22/25 00:50
Troponin I Urgent
02/22/25 02:41
Admit/Transfer Patient As Directed
Co-Sign Provider:
Level of Care: Observation services
Assign to:: Telemetry
Physician / Group: Royal
Diagnosis: Abnormal Lab
Reason for Telemetry: Chest Pain syndromes
Date to Stop Telemetry: 02/24/25
Time to Stop Telemetry: 11:00
PRN Pain Medication Management As Directed
May give lesser potent ordered pain med per pt: Yes
preference::
Protocol:: Medication orders for pain may be administered in a
manner that supports deferring to patient preference
when the pt is:
- Requesting an ordered lesser potent pain medication.
Least to most potent pain medications are defined
as: acetaminophen < NSAID < tramadol < opioids
(morphine, oxycodone, hydromorphone).
- Requesting a lesser dose of the same medication IF
ORDERED.
- Requesting a less intrusive route of administration
if both routes are prescribed by the provider (PO <
IV).
02/22/25 02:42
Code Status As Directed
Resuscitation Status: Full Code
02/22/25 04:46
Acetaminophen [Tylenol] 650 mg PO Q4HPRN PRN
Diphenhydramine [Benadryl] 25 mg PO HSPRN PRN
02/22/25 04:46
CARDIOLOGY CONSULT Routine
Consulting Provider: Forrest Dickson
Was physician already notified: Yes
Reason for consult: Abnormal Troponin
Activity As Directed
Activity Level: Ambulate
EKG with chest pain [ECG as needed] As Directed
ECG as needed for:: Chest Pain
I/O [Intake/ Output] As Directed
Frequency: Per unit guidelines
Vital Signs As Directed
Frequency: Per unit guidelines
Weight As Directed
Frequency: Daily
Oxygen Therapy [O2 Therapy] [RESP] Routine
Titrate/Wean O2 to maintain O2 sat greater than (%): 94
DX Deep Vein Thrombosis Video Routine
02/22/25 05:12
Basic Metabolic Panel IN AM
Cardiovascular Evaluation IN AM
Complete Blood Count/No Diff IN AM
Glycohemoglobin (HgbA1c) Routine
Troponin I Q6H
02/22/25 06:00
EKG [Electrocardiogram (*1)] IN AM
Reason for Study: Chest Pain
NPO
Allow oral meds: Yes
Allow clear liquids: Sips of Clears
Levothyroxine [Synthroid] 100 mcg PO DAILY @ 0600
02/22/25 08:00
Aspirin Low Dose EC [Aspir Low (Enteric Coated)] 81 mg PO DAILY
Lisinopril [Zestril] 5 mg PO DAILY
Rosuvastatin Calcium [Crestor] 20 mg PO Q48H
imatinib [Gleevec] See Dose Instructions PO DAILY
02/22/25 18:00
Enoxaparin Sodium [Lovenox] 40 mg SC QPM
02/24/25 11:00
DC Protocol for Telemetry ONCE
Abnormal Lab Results
02/21/25 02/22/25
22:25 00:50
RBC 4.54 L 10^6/uL
(4.70-6.10)
MCV 101.8 H fL
(80.0-94.0)
MCH 35.5 H pg
(27.0-31.0)
Absolute Lymphs (auto) 0.7 L 10^3/uL
(1.2-3.4)
Lymphocytes % 14.2 L %
(20.5-51.1)
Monocytes % 10.9 H %
(1.7-9.3)
BUN 32 H mg/dl
(9-20)
Glucose 109 H mg/dl
(70-99)
AST 64 H U/L
(17-59)
ALT 67 H U/L
(0-50)
Troponin I 0.098 H* ng/ml 0.109 H* ng/ml
Total Protein 6.1 L g/dl
(6.3-8.2)
02/21/25 22:25
02/21/25 22:25
Vital Signs
Initial and Last Documented VS:
Initial Vital Signs
Temp Pulse Resp BP Pulse Ox
98.0 F 87 18 150/85 99
02/21/25 21:30 02/21/25 21:30 02/21/25 21:30 02/21/25 21:30 02/21/25 21:30
Last Documented Vital Signs
Temp Pulse Resp BP Pulse Ox
98.7 F 76 18 128/20 95
02/22/25 11:05 02/22/25 11:05 02/22/25 11:05 02/22/25 11:05 02/22/25 11:05
<Marlon Jaramillo DO - Last Filed: 02/22/25 02:20>
Orders/Labs/Results
Orders:
Orders
02/21/25 22:08
Periph Venous Lwr Ext Rt US [US Periph Venous LOWER Ext RT] Urgent
Comment:
Reason For Exam: calf swelling
02/21/25 22:09
Electrocardiogram (*1) Urgent
Reason for Study: Shortness of Breath
EKG- Treatment ONCE
CR Chest - 2 Views Urgent
Comment:
Reason For Exam: SOB
02/21/25 22:25
Complete Blood Count/With Diff Urgent
Comprehensive Metabolic Panel Urgent
Magnesium Urgent
Comment: ADD ON
NT-proBNP Urgent
Comment: ADD ON
Troponin I Urgent
02/21/25 23:52
Add On- LAB Urgent
Tests Added?: BNP
02/22/25 00:50
Troponin I Urgent
02/22/25 02:41
Admit/Transfer Patient As Directed
Co-Sign Provider:
Level of Care: Observation services
Assign to:: Telemetry
Physician / Group: Royal
Diagnosis: Abnormal Lab
Reason for Telemetry: Chest Pain syndromes
Date to Stop Telemetry: 02/24/25
Time to Stop Telemetry: 11:00
PRN Pain Medication Management As Directed
May give lesser potent ordered pain med per pt: Yes
preference::
Protocol:: Medication orders for pain may be administered in a
manner that supports deferring to patient preference
when the pt is:
- Requesting an ordered lesser potent pain medication.
Least to most potent pain medications are defined
as: acetaminophen < NSAID < tramadol < opioids
(morphine, oxycodone, hydromorphone).
- Requesting a lesser dose of the same medication IF
ORDERED.
- Requesting a less intrusive route of administration
if both routes are prescribed by the provider (PO <
IV).
02/22/25 02:42
Code Status As Directed
Resuscitation Status: Full Code
02/22/25 04:46
Acetaminophen [Tylenol] 650 mg PO Q4HPRN PRN
Diphenhydramine [Benadryl] 25 mg PO HSPRN PRN
02/22/25 04:46
CARDIOLOGY CONSULT Routine
Consulting Provider: Forrest Dickson
Was physician already notified: Yes
Reason for consult: Abnormal Troponin
Activity As Directed
Activity Level: Ambulate
EKG with chest pain [ECG as needed] As Directed
ECG as needed for:: Chest Pain
I/O [Intake/ Output] As Directed
Frequency: Per unit guidelines
Vital Signs As Directed
Frequency: Per unit guidelines
Weight As Directed
Frequency: Daily
Oxygen Therapy [O2 Therapy] [RESP] Routine
Titrate/Wean O2 to maintain O2 sat greater than (%): 94
DX Deep Vein Thrombosis Video Routine
02/22/25 05:12
Basic Metabolic Panel IN AM
Cardiovascular Evaluation IN AM
Complete Blood Count/No Diff IN AM
Glycohemoglobin (HgbA1c) Routine
Troponin I Q6H
02/22/25 06:00
EKG [Electrocardiogram (*1)] IN AM
Reason for Study: Chest Pain
NPO
Allow oral meds: Yes
Allow clear liquids: Sips of Clears
Levothyroxine [Synthroid] 100 mcg PO DAILY @ 0600
02/22/25 08:00
Aspirin Low Dose EC [Aspir Low (Enteric Coated)] 81 mg PO DAILY
Lisinopril [Zestril] 5 mg PO DAILY
Rosuvastatin Calcium [Crestor] 20 mg PO Q48H
imatinib [Gleevec] See Dose Instructions PO DAILY
02/22/25 18:00
Enoxaparin Sodium [Lovenox] 40 mg SC QPM
02/24/25 11:00
DC Protocol for Telemetry ONCE
Abnormal Lab Results
02/21/25 02/22/25
22:25 00:50
RBC 4.54 L 10^6/uL
(4.70-6.10)
MCV 101.8 H fL
(80.0-94.0)
MCH 35.5 H pg
(27.0-31.0)
Absolute Lymphs (auto) 0.7 L 10^3/uL
(1.2-3.4)
Lymphocytes % 14.2 L %
(20.5-51.1)
Monocytes % 10.9 H %
(1.7-9.3)
BUN 32 H mg/dl
(9-20)
Glucose 109 H mg/dl
(70-99)
AST 64 H U/L
(17-59)
ALT 67 H U/L
(0-50)
Troponin I 0.098 H* ng/ml 0.109 H* ng/ml
Total Protein 6.1 L g/dl
(6.3-8.2)
02/21/25 22:25
02/21/25 22:25
Vital Signs
Initial and Last Documented VS:
Initial Vital Signs
Temp Pulse Resp BP Pulse Ox
98.0 F 87 18 150/85 99
02/21/25 21:30 02/21/25 21:30 02/21/25 21:30 02/21/25 21:30 02/21/25 21:30
Last Documented Vital Signs
Temp Pulse Resp BP Pulse Ox
98.7 F 76 18 128/20 95
02/22/25 11:05 02/22/25 11:05 02/22/25 11:05 02/22/25 11:05 02/22/25 11:05
<Samanta Schreiber NP - Last Filed: 02/23/25 23:50>
*Pulse Oximetry
SaO2: 99
Oxygen Mode of Delivery: Room air
Patient hypoxic: no
*Critical Care Note
Total Time (30-74mins, 75-104mins- exclusive of procedures): Not Applicable
<Samanta Schreiber NP - Last Filed: 02/23/25 23:50>
Update Note
Update Note:
Patient to ED with complaint of RLE swelling. Reports dizziness yesterday and today, increasing fatigue over the past few weeks. Denies any CP/pressures. PMH CAD, thoracic aneurysm/repair, CABG, left fem/pop bypass, HTN Hyperlipidemia, CML. Labs
reviewed. Troponin 0.098 (09/2023 0.06). EKG unchanged. He denies any cp/pressure. No dizziness while in ED. Reports fatigue but feels this is related to his work. US neg fro DVT. EKG, CXR unchanged. Case discussed with Dr. Jaramillo who also
evaluated this patient. WIll repeat Troponin, follow trend. Dr. Jaramillo to assume care of this patient.
ED Attending Note
<Samanta Schreiber NP - Last Filed: 02/23/25 23:50>
-
Portions of this chart may have been created with voice recognition software.� Occasional wrong word or��sound alike� substitutions may have occurred due to the inherent limitations of voice recognition software.
<Marlon Jaramillo, - Last Filed: 02/22/25 02:20>
ED Attending Note
Patient seen and examined by attending physician: Yes
I performed the substantive portion of visit, reviewed & personally made and approve the management plan that is documented in note by myself or BRIE.: Yes
ED Attending Note:
I agree with Samanta's note.
Patient presents with lower extremity swelling particularly in the right lower extremity. Patient noticed this earlier today when he was leaning on an object and noted an indentation to his lower extremity. Patient has an extensive past medical
history including peripheral vascular disease, coronary artery disease, CABG, femoropopliteal bypass. Additionally the patient states he has felt a lack of energy for the past several weeks. No chest pain. He continues to lift weights. He is
doing lower weights and rapid sets and has not had any change in his exercise tolerance recently.
General: Awake, Alert, Oriented X3. No acute distress. Appears chronically ill
Vitals: unremarkable
Head: Atraumatic
Eyes: Pupils equal, EOMI
Throat: Airway intact, no exudates
Neck: Trachea midline
Lungs: Clear and equal b/l
Heart: Regular rate, no murmurs
Abd: Soft, Nontender, No pulsatile mass
Neuro: Cranial nerves intact, muscle strength equal bilaterally, cerebellar exam normal
Skin: Warm, dry, no rash
Extremities: pulses equal b/l, 1+ edema
EKG: Sinus rhythm at 68 with a first-degree AV block. There is T wave inversion in the anterior lateral leads which was present on previous EKG. No acute changes
Initial troponin elevated at 0.098. Repeat troponin trended upward to 0.109. Discussed with Dr. High. Recommends hospitalization, no heparin at this point in as he develops chest pain her troponin continues to rise. DVT study negative. Chest
x-ray shows no obvious pulmonary edema
Discharge Plan
Departure
Patient Disposition: Admit
Date of Disposition: 02/22/25
Time of Disposition: 02:18
Admit to: Telemetry
Presentation/result/management discussed w/ accepting MD/DO: Hospitalist
Discharge Problem:
Fatigue, Edema, Elevated troponin
Interventions
Interventions:
*Risk Screen - Suicide Last Done: 02/22/25 04:43
*General Assessment Last Done: 02/21/25 21:30
*Neglect/Abuse Screening Last Done: 02/21/25 22:28
*ED- Fall Risk Assessment Last Done: 02/21/25 22:28
*ED COVID-19 Vaccine History Last Done: 02/22/25 04:43
*Nursing Disposition Last Done: 02/22/25 04:27
ED- Cardiac Assessment Last Done: 02/21/25 22:28
ED- Pulmonary Assessment Last Done: 02/21/25 22:29
Discharge Date and Time
Discharge Date/Time: 02/22/25 04:35
[2025-02-21 22:37] LABS: Hematocrit 46.2 % (39.0-52.0); Hemoglobin 16.1 g/dL (13.0-18.0); Mean Corp Hgb Conc. 34.8 g/dL (33.0-37.0); Mean Corpuscular Volume 101.8 fL (80.0-94.0); Nucleated Red Blood Cells % 0 % (-); Platelet Count 140 10^3/uL (130-400); Red Cell Dist. Width 14.4 % (11.5-14.5)
[2025-02-21 22:51] LABS: ALT (SGPT) 67 U/L (0-50); AST (SGOT) 64 U/L (17-59); Albumin 3.7 g/dl (3.5-5.0); Alkaline Phosphatase 74 U/L (38-126); Blood Urea Nitrogen 32 mg/dl (9-20); Calcium 9.5 mg/dl (8.4-10.2); Carbon Dioxide 25 mmol/L (22-30); Chloride 105 mmol/L (98-107); Glucose 109 mg/dl (70-99); Potassium 4.1 mmol/L (3.5-5.1); Sodium 135 mmol/L (135-145); Total Protein 6.1 g/dl (6.3-8.2); eGFR > 60.00
[2025-02-21 22:59] LABS: Troponin I 0.098 ng/ml
[2025-02-22 01:56] LABS: Troponin I 0.109 ng/ml
[2025-02-22 02:22] VITALS: BP 152/86
--- NOTE | 2025-02-22 02:44 | HPS.HSE ---
Family Physician
-
Family Physician: * NONE
Chief Complaint
-
RLE swelling
History of Present Illness
Patient is a 64y M with PMH significant for ASCVD, hypertension and ascending aortic aneurysm who presents to ED complaining of RLE swelling. Patient states that his noted this swelling today. He admits to some discomfort behind the R
knee. Patient states that he works out regularly and notes that he may have strained something. He denies any recent plane travel, long car rides, etc.
On ROS he admits to dyspnea with activity / exertion that has been ongoing for about a month or so. He denies any chest pain / pressure, lightheadedness, dizziness, N/V, etc.
Medical History
Past Medical History
Past Medical History: Reports Other
Additional Past Medical History:
Thoracic aortic aneurysm without rupture
Hyperlipidemia
Peripheral vascular disease
Thoracic ascending aortic aneurysm
Coronary artery disease
Tachycardia hypertension
Popliteal artery aneurysm
Past Surgical History: Reports Other
Additional Past Surgical History:
Right shoulder replacement
Partial nephrectomy of kidney
Mid SFA
Robotic cardiac bypass
Left Fem-Pop Bypass
Neck fusion
Social History
Tobacco: Non-smoker
Alcohol: None
Drug: None
Personal:
Living: With Family
Employment: Employed
Family History
Family History: Not pertinent
Allergies / Home Medications
Allergies reflects when Allergies were last updated in [facility].
Home Medications with original date entered in [facility]
Allergy/Medication List:
Allergies
Allergy/AdvReac Type Severity Reaction Status Date / Time
zolpidem (From Ambien) Allergy Gave pt Verified 02/21/25 21:30
nightmares
Home Medications
aspirin 81 mg tablet,delayed release 81 mg PO DAILY Blood clot prevention/tx 04/27/20
cholecalciferol (vitamin D3) 25 mcg (1,000 unit) tablet 25 mcg PO DAILY Supplement 10/23/23
hawthorn melendez 300 mg PO DAILY Supplement 10/23/23
imatinib 400 mg tablet (Gleevec) 400 mg PO DAILY Cancer 10/23/23
levothyroxine 100 mcg tablet 100 mcg PO DAILY Thyroid 10/23/23
lisinopril 5 mg tablet 5 mg PO DAILY Blood Pressure 10/23/23
magnesium 1 tab PO DAILY Supplement 10/23/23
omega [id number] oil 1,200 mg (144 mg-216 mg) capsule (Fish Oil) 1 cap PO DAILY Supplement 10/23/23
vitamin B complex 1 tab PO DAILY Supplement 10/23/23
zinc 50 mg tablet 50 mg PO DAILY Supplement 10/23/23
famotidine 20 mg tablet 20 mg PO DAILY #20 tabs 10/24/23
naproxen 250 mg tablet 250 mg PO BID PRN Pain #20 tabs 10/24/23
rosuvastatin 20 mg tablet 20 mg PO DAILY High Cholesterol #0 tabs 10/24/23
Review of Systems
-
History Source: Patient
A 12 point ROS was completed and negative except as noted: Yes
Constitutional: Reports Fatigue; Denies Fever or Chills
Respiratory: Reports Trouble Breathing (Dyspnea with exertion / activity x 1 month.); Denies Cough
Cardiac: Denies Chest Pain, Palpitations or Syncope
Abdomen/GI: Denies Abdominal Pain, Nausea, Vomiting or Diarrhea
: Denies Dysuria or Frequency
Musculoskeletal: Reports Muscle Pain and Edema
Neurological: Denies Dizzy or Headache
Physical Exam
Vital Signs
Vital Signs
Temp Pulse Resp BP Pulse Ox
98.0 F 65 18 152/86 98
02/21/25 21:30 02/22/25 02:22 02/21/25 21:30 02/22/25 02:22 02/22/25 02:22
Physical Exam
General: Other (64y M in no acute distress.)
HEENT: Moist mucous membranes and PERRLA
Respiratory: Clear; No Wheezes, Rales or Rhonchi
Cardiac: S1/S2, Regular Rhythm (with ectopy.) and Murmur (II/ ARMAND)
GI: Soft, Non Tender, Non Distended and Normal Bowel Sounds
Musculoskeletal: No Clubbing, No Cyanosis and No Edema
Neuro: AO x 3
Laboratory Results
-
02/21/25 22:25
02/21/25 22:25
Laboratory Results
Total Bilirubin 1.0 mg/dl (0.2-1.3) 02/21/25 22:25
AST 64 U/L (17-59) H 02/21/25 22:25
ALT 67 U/L (0-50) H 02/21/25 22:25
Alkaline Phosphatase 74 U/L (38-126) 02/21/25 22:25
Troponin I 0.109 ng/ml H* 02/22/25 00:50
Impression/Plan
-
A/P: Patient is a 64y M with PMH significant for ASCVD, hypertension and CML who presents to ED complaining of RLE swelling and is noted to have an abnormal troponin.
Abnormal Troponin
ASCVD (CAD / PAD)
- Observe overnight for further evaluation.
- Initial troponin 0.098 and increased to 0.109.
- EKG with chronic T wave changes - but no change compared to prior tracings.
- No chest pain, palpitations, etc. Some exertional dyspnea that has been ongoing for about one month.
- ED staff reviewed with Cardiology who recommended observation / additional troponin trending.
- Continue current CV med regimen including ASA, statin, etc.
- Follow for any symptoms.
RLE Swelling
- Likely musculoskeletal injury / sprain / strain.
- No edema on exam at present after lying flat in ED for several hours.
- US was negative for DVT.
Benign Hypertension
- Stable. Continue current med regimen.
Ascending Aortic Aneurysm
- With RIVERA, transient edema, aorta dilation, etc - would likely benefit from updated Echo.
- Probably as an outpatient given timing.
Hypothyroidism
- Stable. Continue T4 supplementation.
CML
- Stable. Continue Gleevec.
DVT Prophylaxis: Lovenox
Code Status: Full
[2025-02-22 04:32] LABS: Magnesium 1.8 mg/dl (1.6-2.3)
[2025-02-22 05:42] LABS: Hematocrit 48.7 % (39.0-52.0); Hemoglobin 17.0 g/dL (13.0-18.0); Mean Corp Hgb Conc. 34.9 g/dL (33.0-37.0); Mean Corpuscular Volume 101.9 fL (80.0-94.0); Platelet Count 130 10^3/uL (130-400); Red Cell Dist. Width 14.5 % (11.5-14.5)
--- NOTE | 2025-02-22 06:00 | PTCARENOTE ---
Patient received on unit as admission from emergency room. Able to ambulate from transport stretcher to bed unassisted. Denies current pain, discomfort, or shortness os breath. Vital signs stable and skin intact.
[2025-02-22 06:01] VITALS: BP 138/82
[2025-02-22 06:03] LABS: Blood Urea Nitrogen 27 mg/dl (9-20); Calcium 9.3 mg/dl (8.4-10.2); Carbon Dioxide 27 mmol/L (22-30); Chloride 105 mmol/L (98-107); Glucose 99 mg/dl (70-99); HDL Cholesterol 26 mg/dl; LDL Cholesterol, Calculated 85 mg/dl; Potassium 4.1 mmol/L (3.5-5.1); Sodium 138 mmol/L (135-145); Very Low Density Lipoprotein 11 mg/dl (0-30); eGFR > 60.00
[2025-02-22 06:04] LABS: Troponin I 0.100 ng/ml
[2025-02-22] MEDS: SYNTHROID 100 MCG PO (06:13)
[2025-02-22 06:44] VITALS: BMI 27.6
[2025-02-22 07:00] VITALS: BP 132/78
--- NOTE | 2025-02-22 07:46 | CON.CAR ---
Consultation
Consultation Request
Date/Time Consultation Requested: 02/22/2025 0204
Date/Time Consultation Performed: 02/22/2025 0730
Requesting Provider: Ella
Performing Provider: Yessi
Reason for Consultation: LE Swelling, Troponin
Medical History
-
Chief Complaint: RLE swelling, fatigue
History of Present Illness:
It is a pleasure to see Mr. Bruce in consultation today. As you aware, patient is a pleasant 64-year-old male with a past medical history significant for CAD with prior COURTNEY�LAD robotic CABG with RCA PCI, hypertrophic cardiomyopathy, ascending
aortic aneurysm, heart failure with preserved ejection fraction, RCC status post left partial nephrectomy, PAD LLE with prior limb threatening ischemia, CML on Gleevec, hypertension, dyslipidemia, prior anabolic steroid use, hypothyroidism, abnormal
liver enzymes, osteoarthritis, cervical disc disease who presented to [facility] emergency department due to concern of right lower extremity swelling, pain, and reported fatigue. Cardiology is consulted due to elevated troponin. In discussion
with patient, he reports overall feeling well however does report that he is still getting over a lingering cold. He notes congestion which has persisted despite this URI which was a few weeks ago. He denies chest pain, shortness of breath,
palpitations, PND, orthopnea, or weakness. He does endorse an episode of near syncope while driving without tarah syncope occurring several days ago without clear etiology, exacerbating, or alleviating factors. He also reports right lower
extremity swelling and congestion which again has persisted. In emergency department, patient's troponin was noted to be 0.09 which up trended to 0.109 and down trended to 0.100 patient's BNP was greater than 500, LDL is 85. Right lower extremity
ultrasound negative for DVT. Patient's EKG demonstrates sinus rhythm incomplete right bundle branch block with LVH pattern and repolarization/T wave abnormality consistent with LVH without significant change from prior EKG.
Past Medical History
Past Medical History: Other (See HPI)
Past Surgical History: Other (CABG (2019), left femoral-popliteal bypass (2016) with occlusion of bypass graft (2019), left partial nephrectomy)
Social History
Tobacco: Non-Smoker
Alcohol: None
Drug: None
Personal:
Living: With Family
Employment: Employed
Family History
Family History: CAD
Allergies / Home Medications
Allergy/AdvReac Type Severity Reaction Status Date / Time
zolpidem (From Ambien) Allergy Gave pt Verified 02/21/25 21:30
nightmares
�Medication �Instructions �Recorded �Confirmed �Type
aspirin 81 mg tablet,delayed 81 mg PO DAILY Blood clot 04/27/20 02/22/25 History
release prevention/tx
cholecalciferol (vitamin D3) 25 25 mcg PO DAILY Supplement 10/23/23 10/23/23 History
mcg (1,000 unit) tablet
hawthorn melendez 300 mg PO DAILY Supplement 10/23/23 10/23/23 History
imatinib 400 mg tablet (Gleevec) 400 mg PO DAILY Cancer 10/23/23 02/22/25 History
levothyroxine 100 mcg tablet 100 mcg PO DAILY Thyroid 10/23/23 02/22/25 History
lisinopril 5 mg tablet 5 mg PO DAILY Blood Pressure 10/23/23 02/22/25 History
magnesium 1 tab PO DAILY Supplement 10/23/23 10/23/23 History
omega 2-unz-pdu-fish oil 1,200 mg 1 cap PO DAILY Supplement 10/23/23 10/23/23 History
(144 mg-216 mg) capsule (Fish Oil)
vitamin B complex 1 tab PO DAILY Supplement 10/23/23 10/23/23 History
zinc 50 mg tablet 50 mg PO DAILY Supplement 10/23/23 10/23/23 History
famotidine 20 mg tablet 20 mg PO DAILY #20 tabs 10/24/23 Rx
naproxen 250 mg tablet 250 mg PO BID PRN Pain #20 tabs 10/24/23 Rx
rosuvastatin 20 mg tablet 20 mg PO DAILY High Cholesterol #0 10/24/23 02/22/25 Rx
tabs
Review of Systems
-
History Source: Patient
All other systems: Negative unless noted
Constitutional: No Symptoms
EENT: No Symptoms
Respiratory: Cough and Other (Congestion)
Cardiac: No Symptoms
Abdomen/GI: No Symptoms
: No Symptoms
Musculoskeletal: Edema and Other (Right lower extremity pain behind the knee)
Skin: No Symptoms
Neurological: Dizzy
Endocrine: No Symptoms
Hematologic/Lymphatic: No Symptoms
Physical Exam
Vital Signs
Temp Pulse Resp BP Pulse Ox
97.4 F 68 18 138/82 98
02/22/25 04:56 02/22/25 04:56 02/22/25 04:56 02/22/25 06:01 02/22/25 04:56
Lab Results
02/22/25 05:12
02/22/25 05:12
Troponin I 0.100 ng/ml H* 02/22/25 05:12
Sog-R-Dqmnrnjitsp Pept 504 pg/ml 02/21/25 22:25
Physical exam:
GENERAL: no acute distress
EYE: sclera anicteric
NECK: Supple, no JVD, no carotid bruit appreciated
ENT: normal nose, moist mucosal membranes
CARDIAC: Regular rate and rhythm, +S1/S2, 2/6 basal systolic murmur; no rubs, or gallops
CHEST/PULMONARY: Normal effort, clear breath sounds
ABDOMEN: Soft, without focal tenderness or distention
NEUROLOGICAL: Alert and oriented x3
SKIN: Warm and dry, no rash; RLE trace-1+ pitting edema up to knee, negative edvin's
PSYCH: Normal and appropriate interaction.
Impression / Plan
-
Patent Attorney: Dr Jaime Gale
Impression:
RLE Swelling, concern for heart failure (known HFPEF)
Elevated troponin
CAD s/p RCA PCI and robotic COURTNEY to LAD [address] [place] [address]
LVOT obstruction with associated murmur
CML, on gleevec
Peripheral vascular disease with history of left femoropopliteal bypass 2017 with occluded bypass graft 03/2020
HTN with intermittent orthostasis
dyslipidemia
Hypothyroidism
mild dilation of infrarenal aorta 2.[address] 2010
Thoracic aortic aneurysm 4.6 cm aortic root on CT 2011
- TTE 09/2023 Asc Ao 4.8 cm 4.6 at [facility]
h/o L partial nephrectomy for renal cell CA
Cervical disc disease s/p laminectomy
History of anabolic steroid use
NSVT
B/L renal cysts by abd US
ECHO 05/2021: Moderate to severe asymmetric septal hypertrophy with dynamic LV function, EF 70%, LV mid cavity gradient 65 mmHg, stage II diastolic dysfunction, MAC, trace MR, dilated left atrium, aortic sclerosis, trace AR, dilated aortic root and
ascending aorta, 4.6 cm.
ECHO 10/24/2023: Moderate to severe LVH with preserved systolic function EF 60-65%, stage II diastolic dysfunction, no clear-cut LVOT gradient; MAC, mild MR, dilated LA; borderline aortic stenosis with mild AI; normal right heart; ascending aorta
aneurysm 4.6 cm at sinus of Valsalva 4.8 cm in ascending aorta
Lexiscan nuclear stress test 02/02/2023: Normal sestamibi perfusion imaging, EF 49%, no obvious ischemia
Lexiscan nuclear stress test 10/26/2023: Fixed mid anteroseptal and apical lateral segments consistent with ischemia v STA; STA more likely; systolic function low normal 52% with dilated LV; no reported change in study compared to 01/2023
Recommendations:
- 2D echocardiogram to assess cardiac size, shape, function, and valvular anatomy in the setting of elevated troponin, elevated BNP, and right lower extremity:
� Monitor on telemetry
� Gentle IV diuresis Lasix 20 mg x 1 monitor response patient does not take Lasix regularly
� Monitor intake and output, daily weights, renal function
� Patient to likely to need ischemic evaluation inpatient versus outpatient pending echo
� Remaining care per primary service
Data Reviewed
-
EKG: Tracing Personally Visualized and interpreted
Radiology: Report Reviewed by me
Ultrasound: Report Reviewed by me
Medical Tests (Nuc Med, Echo etc): Report Reviewed by me
Labs: Labs Reviewed by me
Old Records: Reviewed
[2025-02-22] MEDS: ZESTRIL 5 MG PO (09:07)
[2025-02-22] MEDS: CRESTOR 20 MG PO (09:07)
[2025-02-22] MEDS: ASPIR LOW (ENTERIC COATED) 81 MG PO (09:07)
[2025-02-22] MEDS: LASIX 20 MG IV (09:08)
[2025-02-22 11:05] VITALS: BP 128/20
--- NOTE | 2025-02-22 12:12 | W.PN.HOSP.TC ---
Addendum entered and electronically signed by Neo Puri MD 02/22/25 13:06:
Discussed with cardiology
Okay for discharge with Lasix every other day
Echo reviewed
Patient to follow-up with cardiology office
I have texted [facility] a cardiology front office
Also gave him a prescription for lab work next week
Discussed with cardiology on-call
Total discharge time more than 30 minutes
Addendum entered and electronically signed by Neo Puri MD 02/22/25 13:01:
Normal left ventricular size and systolic function. No regional wall motion
abnormalities are seen. LV ejection fraction is 55-60% by Chatterjee's method of
discs. Severe concentric left ventricular hypertrophy.
Mild aortic stenosis. Peak/mean gradients are 18/9mmHg. Mild aortic
regurgitation.
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
Compared to the previous echo September 2023, there is no significant change.
Original Note:
Today's Communication/Plan
-
ECHO
Assessment / Plan
Assessment / Plan
64-year-old with right lower extremity swelling
CVS: S1-S2 normal
Chest: CTA B/L
Abdomen: Soft, NT / Bowel sounds present
Extremities: Mild right lower extremity edema
CRIME SCENE ANALYST: Non focal exam
# Elevated troponin-trended down
Likely nonischemic myocardial injury, but need to wait for the echo
History of coronary artery disease with history of RCA PCI, CABG in 2019 at [facility]
EKG with- T wave changes
Continue aspirin, statin
Cardiology evaluation noted and appreciated
# Right lower extremity edema-ultrasound negative for DVT
Likely from Acute HF
Await ECHO
Lasix.
# Hypertension-continue lisinopril
# Ascending aortic aneurysm
# Hypothyroidism-continue levothyroxine
# History of PVD/atherosclerosis/hyperlipidemia-continue aspirin and statin
History of femoropopliteal bypass 2017
History of left lower extremity angioplasty and lysis 2019
# CML-continue Gleevec
# History of thoracic aortic aneurysm , mild dilatation of the infrarenal aorta
# History of renal cell carcinoma with history of left nephrectomy in 2008
# Cervical disc disease s/p laminectomy
# DVT prophylaxis-Lovenox
# Full code
Discussed with nursing
Discussed with cardiology
Patient has a lot of issues going on at home and he would like to leave AGAINST MEDICAL ADVICE. He was given a prescription for labs to be done on Monday and continue with Lasix 20 mg daily at home which he has prescriptions at home for. I have
also texted [facility] cardiology office to schedule him an appointment. Patient is getting an echo done today per discussion with cardiology
Part of this note was created using voice recognition system. Occasional wrong word or��sound alike� substitutions may have inadvertently occurred due to the inherent limitations of voice recognition software. If noted kindly bring it to my
attention for correction.
Anticipated Discharge: Within 24 hours
Subjective/Interval History
-
Date of Service: February 22, 2025
Objective Data
-
Labs:
Laboratory Results
02/22/25
05:12
WBC 5.0
Hgb 17.0
Hct 48.7
Plt Count 130
Sodium 138
Potassium 4.1
Chloride 105
Carbon Dioxide 27
BUN 27 H
Creatinine 1.1
Glucose 99
Calcium 9.3
Vital Signs:
Vital Signs
Temp Pulse Resp BP Pulse Ox
97.9 F 67 18 132/78 96
02/22/25 07:00 02/22/25 09:07 02/22/25 07:00 02/22/25 09:07 02/22/25 07:00
--- NOTE | 2025-02-22 12:43 | CM ---
Patient seen at bedside
OBS status - form explained & signed. In chart
IA completed
Lives with in 2 story home, [address], flight of steps to bed/bathroom
PLOF: Independent, works, drives
Denies DME
Denies VN/Rehab
PCP: states does not have one. Information [facility]
Pharmacy: [facility], [address], [place]
Plan: home, no needs
--- NOTE | 2025-02-22 13:10 | W.DS.TRANS ---
Addendum entered and electronically signed by Neo Puri MD 02/22/25 14:14:
Dictation- [id number]
Original Note:
DC Summary - Community Cultural Development Officer
-
Discharge Instructions:
Discharge Diagnosis/Procedures Elevated troponin
Right lower extremity edema
Hypertension
Ascending aortic aneurysm
Hypothyroidism
History of PVD
Hyperlipidemia
CML
Thoracic aortic aneurysm
History of renal cell carcinoma with nephrectomy
Diet 2 Gram Sodium,Restrict fluids to 64 oz
Activity As tolerated
Driving Restrictions As prior to admission
Blood Work BMP next week
Specialty Instructions Weigh Daily
Instructions:
Stand-Alone Forms:
Changes to Home Medications: Yes
Discharge Medications:
DC Medications w/original date entered in [facility]
aspirin 81 mg tablet,delayed release 81 mg PO DAILY Blood clot prevention/tx 04/27/20
cholecalciferol (vitamin D3) 25 mcg (1,000 unit) tablet 25 mcg PO DAILY Supplement 10/23/23
imatinib 400 mg tablet (Gleevec) 400 mg PO DAILY Cancer 10/23/23
levothyroxine 100 mcg tablet 100 mcg PO DAILY Thyroid 10/23/23
lisinopril 5 mg tablet 5 mg PO DAILY Blood Pressure 10/23/23
magnesium 1 tab PO DAILY Supplement 10/23/23
omega 9-bfx-lmy-fish oil 1,200 mg (144 mg-216 mg) capsule (Fish Oil) 1 cap PO DAILY Supplement 10/23/23
vitamin B complex 1 tab PO DAILY Supplement 10/23/23
rosuvastatin 20 mg tablet 20 mg PO DAILY High Cholesterol #0 tabs 10/24/23
famotidine 20 mg tablet 20 mg PO DAILY Gastrointestinal issue #20 tabs 02/22/25
furosemide 20 mg tablet (Lasix) 20 mg PO Q OTHER DAY Fluid retention/Swelling #30 tabs 02/22/25
Home Medication Changes
lasix new
Pending Results: No
[2025-02-22 14:43] LABS: Glycohemoglobin (HgbA1c) 5.2 % (4.0-5.6)
== END 2025-02-22 13:43 | disposition home or self-care (01) ==
LOC: 3 WEST ACU 03:03
PROVIDERS: Nurse Practitioner; ADMITTING PHYSICIAN Hospitalist; ATTENDING PHYSICIAN Hospitalist; CONSULT PHYSICIAN Internal Medicine Cardiovascular Disease; EMERGENCY PHYSICIAN Emergency Medicine
DX: R79.89 Other specified abnormal findings of blood chemistry (principal); R60.0 Localized edema; I25.10 Atherosclerotic heart disease of native coronary artery without angina pectoris; I73.9 Peripheral vascular disease, unspecified; I71.21 Aneurysm of the ascending aorta, without rupture; E03.9 Hypothyroidism, unspecified; C92.10 Chronic myeloid leukemia, BCR/ABL-positive, not having achieved remission; I47.20 Ventricular tachycardia, unspecified; I50.32 Chronic diastolic (congestive) heart failure; I11.0 Hypertensive heart disease with heart failure; M50.90 Cervical disc disorder, unspecified, unspecified cervical region; Z79.82 Long term (current) use of aspirin; E78.00 Pure hypercholesterolemia, unspecified; Z79.899 Other long term (current) drug therapy; Z85.528 Personal history of other malignant neoplasm of kidney
CPT/HCPCS: 71046; 80048; 80053; 80061; 83036; 83735; 83880; 84484; 85025; 85027; 93005; 93306; 93971; 99285; G0378

== ENCOUNTER → 2025-06-25 07:20 | Outpatient (REF) | payer OTHER, SELFPAY | LOC: HWRCS 07:20 | PROVIDERS: ATTENDING PHYSICIAN Internal Medicine Cardiovascular Disease; FAMILY PHYSICIAN Physician Assistant Medical | DX: I71.21 Aneurysm of the ascending aorta, without rupture (principal); E78.00 Pure hypercholesterolemia, unspecified; I25.10 Atherosclerotic heart disease of native coronary artery without angina pectoris; I10 Essential (primary) hypertension | CPT/HCPCS: 78452; 93017; A9500; J2785 ==

== ENCOUNTER 2025-07-21 09:17 | Day surgery (SDC) | payer OTHER, SELFPAY ==
--- NOTE | 2025-07-21 11:38 | ITS.CL.CARDI ---
Automotive Repair Technician - Cardioversion
Cardioversion
Procedure Report:
Date of Procedure: Jul 21 2025
Procedure: Cardioversion
Indication: Symptomatic atrial flutter
Performing Physician: Benjamin Goins DO [facility]
Technique: The patient was brought to the holding area. Signed informed consent was obtained. A time out was called and performed. The patient was anesthetized by the anesthesia service. Anticoagulation status was reviewed and appropriate. R2 pads
were placed anteriorly and posteriorly. A 250 J synchronized biphasic shock restored normal sinus rhythm without significant bradycardia. There were no complications.
Conclusion: Uncomplicated cardioversion from atrial flutter to sinus rhythm.
Recommendation: Routine post cardioversion care. Continue fpc anticoagulation.
[2025-07-21] MEDS: ELIQUIS 5 MG PO (11:41)
== END 2025-07-21 12:00 | disposition home or self-care (01) ==
LOC: CATH 09:17
PROVIDERS: ATTENDING PHYSICIAN Nuclear Medicine Nuclear Cardiology; OTHER PHYSICIAN Internal Medicine Cardiovascular Disease
DX: I48.92 Unspecified atrial flutter (principal); Z79.01 Long term (current) use of anticoagulants
CPT/HCPCS: 92960; 93005

== ENCOUNTER → 2025-07-30 12:50 | Outpatient (REF) | payer OTHER, SELFPAY ==
[2025-07-30 13:42] LABS: Hematocrit 51.8 % (39.0-52.0); Hemoglobin 17.9 g/dL (13.0-18.0); Mean Corp Hgb Conc. 34.6 g/dL (33.0-37.0); Mean Corpuscular Volume 95.4 fL (80.0-94.0); Nucleated Red Blood Cells % 0 % (-); Platelet Count 142 10^3/uL (130-400); Red Cell Dist. Width 14.3 % (11.5-14.5)
[2025-07-30 15:45] LABS: ALT (SGPT) 90 U/L (0-50); AST (SGOT) 64 U/L (17-59); Albumin 4.1 g/dl (3.5-5.0); Alkaline Phosphatase 88 U/L (38-126); Blood Urea Nitrogen 27 mg/dl (9-20); Calcium 9.9 mg/dl (8.4-10.2); Carbon Dioxide 28 mmol/L (22-30); Chloride 100 mmol/L (98-107); Glucose 60 mg/dl (70-99); Potassium 4.3 mmol/L (3.5-5.1); Sodium 135 mmol/L (135-145); Total Protein 7.1 g/dl (6.3-8.2); eGFR > 60.00
[2025-07-30 16:05] LABS: PSA, Total - Diagnostic 1.03 ng/ml (0.0-4.0)
== END ==
LOC: REG 12:50
PROVIDERS: ATTENDING PHYSICIAN Specialist
DX: E29.1 Testicular hypofunction (principal)
CPT/HCPCS: 36415; 80053; 84153; 84270; 84402; 84403; 85025